=== PATIENT | male | born 1995 | race Two or more races ===

== ENCOUNTER 2022-07-04 12:16 | Inpatient (IN) | payer MEDICAID, OTHER ==
[2022-07-04] VITALS (8 sets, daily range): BP systolic 96–174; BP diastolic 51–95
[~2022-07-04] VITALS: Ht 172.7 cm; Wt 77.7 kg
[2022-07-04] MEDS ORDERED: cefTRIAXone SOD 1,000 MG VL IV ONE (12:30)
[2022-07-04] MEDS ORDERED: PANTOPRAZOLE 40mg/50ML NS AE 50 ML IV ONE ×2 (12:30→17:30)
[2022-07-04] MEDS ORDERED: PANTOPRAZOLE 80 MG in SODIUM CHL 0.9% 100 ML IV ONE (12:30)
[2022-07-04] MEDS ORDERED: AZITHROMYCIN 500MG/ 250ML 250 ML IV ONE (12:30)
[2022-07-04] MEDS ORDERED: OCTREOTIDE ACETATE 100 MCG in SODIUM CHL 0.9% 50 ML IV ONE (12:30)
[2022-07-04] MEDS ORDERED: ONDANSETRON HCL 4 MG/2 ML VIAL IV ONE ×2 (12:45→13:45)
[2022-07-04] MEDS ORDERED: cefTRIAXone 1GM/50ML D5W 50 ML IV ONE (12:45)
[2022-07-04 13:47] LABS: Albumin 3.1 g/dL (3.4-5.0); Calcium 7.7 mg/dL (8.5-10.1); Potassium 3.8 mmol/L (3.5-5.1)
[2022-07-04 13:51] LABS: Bilirubin, Total 16.4 mg/dL (0.2-1.0); Total Protein 7.4 g/dL (6.4-8.2)
[2022-07-04 13:56] LABS: Red Blood Cells 1.06 10^6/uL (4.5-5.90)
[2022-07-04 13:58] LABS: Hematocrit 13.1 % (41.0-53.0); Mean Corpuscular Hemoglobin 39.3 pg (28.0-32.0); Mean Corpuscular Volume 122.7 fL (80.0-100.0); Red Cell Distribution Width 19.6 % (11.8-14.3); White Blood Cell 29.5 10^3/uL (4.4-10.8)
[2022-07-04 14:10] LABS: INR 1.48 (0.9-1.15)
[2022-07-04 14:30] LABS: Hemoglobin 4.2 g/dL (13.5-17.5)
[2022-07-04 14:34] LABS: Basophils % (manual) 0 (0.0-2.0); Blast Cells 0; Eosinophils % (manual) 0 (0-7); Metamyelocytes % 0; Promyelocytes % 0; Reactive Lymphocytes 0
[2022-07-04] MEDS ORDERED: VANCOMYCIN 1GM/250ML 250 ML IV ONE (14:45)
[2022-07-04] MEDS ORDERED: METOCLOPRAMIDE HCL 5MG/ml INJ 2ml VIAL IV ONE (15:00)
[2022-07-04] MEDS: OCTREOTIDE ACETATE 500 MCG in SODIUM CHL 0.9% 99 ML IV SCH ×2 (15:05→22:45)
[2022-07-04 15:11] LABS: Band Neutrophils % (manual) 26; Lymphocytes % (manual) 4 (10.0-50.0); Monocytes % (manual) 6 (0-12); Myelocytes % 5
[2022-07-04] MEDS ORDERED: PHYTONADIONE (VIT K)10 MG/ML 1ML VIAL IV ONE (15:30)
[2022-07-04] MEDS ORDERED: PROPOFOL 100 ML IV ONE (17:54)
[2022-07-04] MEDS ORDERED: ETOMIDATE (2MG/ML) 20ML VIAL IV ONE ×2 (17:55→18:00)
[2022-07-04] MEDS ORDERED: SUCCINYLCHOLINE CHLORIDE 20 MG/ML 10ML VIAL IV ONE ×2 (17:55→18:00)
[2022-07-04] MEDS ORDERED: MORPHINE SULFATE INJ 2 MG/ml SYRG IV PRN (18:00)
[2022-07-04] MEDS ORDERED: SODIUM CHLORIDE 0.9% 1,000 ML IV SCH (18:00)
[2022-07-04] MEDS ORDERED: HYDROcodone-ACET 5/325MG TAB PO PRN (18:00)
[2022-07-04] MEDS ORDERED: ACETAMINOPHEN 325 MG TAB PO PRN (18:00)
[2022-07-04] MEDS ORDERED: ONDANSETRON HCL 4 MG/2 ML VIAL IV PRN (18:00)
[2022-07-04] MEDS ORDERED: NITROGLYCERIN 0.4 MG SL TAB SL PRN (18:00)
[2022-07-04] MEDS ORDERED: HYDROmorphone HCL 2 MG/ML VL/or syr IV PRN (18:00)
[2022-07-04] MEDS: PROPOFOL 100 ML IV SCH (18:10)
[2022-07-04] MEDS ORDERED: fentaNYL Drip 2500mCg/250mlNS 250 ML IV ONE (18:26)
[2022-07-04] MEDS: fentaNYL Drip 2500mCg/250mlNS 250 ML IV SCH (18:26)
[2022-07-04] MEDS ORDERED: ROCURONIUM 10MG/ML 10ML VIAL IV ONE ×3 (18:45→22:45)
[2022-07-04] MEDS: MIDAZOLAM DRIP 50 mg/50mL 50 ML IV SCH (18:50)
[2022-07-04 18:52] LABS: Mean Corpuscular Volume 102.9 fL (80.0-100.0); White Blood Cell 26.6 10^3/uL (4.4-10.8)
[2022-07-04 18:54] LABS: Hematocrit 27.5 % (41.0-53.0); Mean Corpuscular Hemoglobin 33.7 pg (28.0-32.0); Mean Corpuscular Hgb Conc. 32.8 g/dL (32.0-36.0); Red Blood Cells 2.67 10^6/uL (4.5-5.90)
[2022-07-04] MEDS ORDERED: ACETAMINOPHEN 650 MG RECT SUPP PR ONE ×2 (18:55→19:00)
[2022-07-04 19:06] LABS: INR 1.51 (0.9-1.15)
[2022-07-04 19:07] LABS: Urine Bacteria NONE SEEN /hpf (None Seen); Urine Blood 1+ /uL (Negative); Urine Hyaline Cast MOD /lpf (0 - 2); Urine Mucus FEW (None Seen); Urine Specific Gravity 1.026 (1.001-1.035); Urine WBC 4 /hpf (0 - 3)
[2022-07-04 19:11] LABS: Albumin 2.8 g/dL (3.4-5.0); Calcium 7.2 mg/dL (8.5-10.1); Potassium 4.7 mmol/L (3.5-5.1)
[2022-07-04 19:12] LABS: Red Cell Distribution Width 23.1 % (11.8-14.3)
[2022-07-04 19:14] LABS: BUN/Creatinine Ratio 31.4; Basophils % (manual) 0 (0.0-2.0); Bilirubin, Total 15.6 mg/dL (0.2-1.0); Blast Cells 0; Eosinophils % (manual) 0 (0-7); Metamyelocytes % 0; Myelocytes % 0; Promyelocytes % 0; Reactive Lymphocytes 0; Total Protein 7.1 g/dL (6.4-8.2)
[2022-07-04 19:24] LABS: Amphetamine Screen, Urine NEGATIVE (NEGATIVE); Barbiturate Scree,Urine NEGATIVE (NEGATIVE); Benzodiazephine Screen, Urine POSITIVE (NEGATIVE); Cannabinoid Screen, Urine NEGATIVE (NEGATIVE); Cocaine Screen, Urine NEGATIVE (NEGATIVE); Opiate Scree,Urine NEGATIVE (NEGATIVE); Phencyclidine Screen, Urine NEGATIVE (NEGATIVE)
[2022-07-04 19:58] LABS: Band Neutrophils % (manual) 19; Lymphocytes % (manual) 5 (10.0-50.0); Monocytes % (manual) 3 (0-12)
[2022-07-04] MEDS: AZITHROMYCIN 500MG/ 250ML 250 ML IV SCH (21:50)
[2022-07-04] MEDS: PIPERACILLIN-TAZO 4.5GM 100 ML IV SCH (21:51)
[2022-07-04] MEDS ORDERED: methylPREDNISolone SOD SUCC 40 MG/ML VL IV ONE (22:30)
[2022-07-04] MEDS ORDERED: OCTREOTIDE ACETATE 500 MCG/ML VL ONE (22:43)
[2022-07-05] VITALS (26 sets, daily range): BP systolic 84–99; BP diastolic 42–55
[2022-07-05 04:55] LABS: Red Blood Cells 2.03 10^6/uL (4.5-5.90)
[2022-07-05 05:02] LABS: Hematocrit 20.7 % (41.0-53.0); INR 1.52 (0.9-1.15); Mean Corpuscular Hemoglobin 34.2 pg (28.0-32.0); Mean Corpuscular Hgb Conc. 33.5 g/dL (32.0-36.0); Mean Corpuscular Volume 102.1 fL (80.0-100.0); White Blood Cell 17.4 10^3/uL (4.4-10.8)
[2022-07-05 05:04] LABS: Albumin 2.3 g/dL (3.4-5.0); Calcium 6.9 mg/dL (8.5-10.1); Potassium 4.8 mmol/L (3.5-5.1)
[2022-07-05 05:07] LABS: BUN/Creatinine Ratio 27.9; Bilirubin, Direct 6.6 mg/dL (0-0.2); Bilirubin, Total 13.9 mg/dL (0.2-1.0); Total Protein 5.7 g/dL (6.4-8.2)
[2022-07-05 05:19] LABS: Red Cell Distribution Width 23.6 % (11.8-14.3)
[2022-07-05 05:20] LABS: Hemoglobin 6.9 g/dL (13.5-17.5)
[2022-07-05 05:25] LABS: Basophils % (manual) 0 (0.0-2.0); Blast Cells 0; Eosinophils % (manual) 0 (0-7); Metamyelocytes % 0; Promyelocytes % 0; Reactive Lymphocytes 0
[2022-07-05] MEDS: PIPERACILLIN-TAZO 4.5GM 100 ML IV SCH ×3 (05:42→21:25)
[2022-07-05 07:01] LABS: Monocytes % (manual) 4 (0-12); Myelocytes % 6
[2022-07-05 07:02] LABS: Band Neutrophils % (manual) 31; Lymphocytes % (manual) 6 (10.0-50.0)
[2022-07-05] MEDS: PHENYLEPHRINE IV 250 ML IV SCH ×3 (07:44→23:58)
[2022-07-05] MEDS: MIDAZOLAM DRIP 50 mg/50mL 50 ML IV SCH ×3 (07:45→21:08)
[2022-07-05] MEDS: OCTREOTIDE ACETATE 500 MCG in SODIUM CHL 0.9% 99 ML IV SCH ×2 (10:00→19:37)
[2022-07-05] MEDS: FOLIC ACID 1 MG, MULTIPLE VITAMIN 10 ML, MAGNESIUM SULF SDV 50% 8 MEQ, THIAMINE INJ 100... INJ SCH ×5 (13:00)
[2022-07-05] MEDS: PROPOFOL 100 ML IV SCH (13:22)
[2022-07-05] MEDS: fentaNYL Drip 2500mCg/250mlNS 250 ML IV SCH (17:50)
[2022-07-05] MEDS: AZITHROMYCIN 500MG/ 250ML 250 ML IV SCH (21:25)
[2022-07-05] MEDS: PANTOPRAZOLE 40 MG/10 ML VIAL INJ IV SCH (22:23)
[2022-07-06] VITALS (99 sets, daily range): BP systolic 88–113; BP diastolic 42–62
[2022-07-06] MEDS: MIDAZOLAM DRIP 50 mg/50mL 50 ML IV SCH ×7 (00:15→22:39)
[2022-07-06] MEDS: OCTREOTIDE ACETATE 500 MCG in SODIUM CHL 0.9% 99 ML IV SCH ×2 (05:00→14:30)
[2022-07-06 05:10] LABS: Basophils % (manual) 0 (0.0-2.0); Blast Cells 0; Eosinophils % (manual) 0 (0-7); Hematocrit 28.3 % (41.0-53.0); Mean Corpuscular Hemoglobin 32.6 pg (28.0-32.0); Mean Corpuscular Hgb Conc. 31.9 g/dL (32.0-36.0); Mean Corpuscular Volume 102.2 fL (80.0-100.0); Myelocytes % 0; Promyelocytes % 0; Reactive Lymphocytes 0; Red Blood Cells 2.77 10^6/uL (4.5-5.90); Red Cell Distribution Width 23.9 % (11.8-14.3); White Blood Cell 20.5 10^3/uL (4.4-10.8)
[2022-07-06 05:52] LABS: INR 1.37 (0.9-1.15); Partial Thromboplastin Time 24.9 sec (24.6-33.4)
[2022-07-06] MEDS: PIPERACILLIN-TAZO 4.5GM 100 ML IV SCH ×2 (06:00→13:59)
[2022-07-06 07:14] LABS: Albumin 2.6 g/dL (3.4-5.0); Calcium 7.2 mg/dL (8.5-10.1)
[2022-07-06 07:18] LABS: BUN/Creatinine Ratio 31.2; Total Protein 6.1 g/dL (6.4-8.2)
[2022-07-06 07:49] LABS: Band Neutrophils % (manual) 62; Lymphocytes % (manual) 4 (10.0-50.0); Metamyelocytes % 1; Monocytes % (manual) 2 (0-12)
[2022-07-06] MEDS: PHENYLEPHRINE IV 250 ML IV SCH ×3 (08:30→21:33)
[2022-07-06] MEDS: PROPOFOL 100 ML IV SCH ×2 (10:01→18:08)
[2022-07-06] MEDS: PANTOPRAZOLE 40 MG/10 ML VIAL INJ IV SCH ×2 (10:01→22:39)
[2022-07-06] MEDS ORDERED: FUROSEMIDE 40 MG/4 ML VIAL IV ONE (11:30)
[2022-07-06] MEDS: methylPREDNISolone SOD SUCC 40 MG/ML VL IV SCH ×3 (11:41→22:39)
[2022-07-06] MEDS: FOLIC ACID 1 MG, MULTIPLE VITAMIN 10 ML, MAGNESIUM SULF SDV 50% 8 MEQ, THIAMINE INJ 100... INJ SCH ×5 (11:42)
[2022-07-06] MEDS: IPRATROPIUM BROM 0.5 MG/2.5ML INH SOL NEB SCH ×4 (11:45→23:35)
[2022-07-06] MEDS: ALBUTEROL SULF 2.5 MG/0.5ML(0.5%) NEB SOLN NEB SCH ×4 (11:45→23:35)
[2022-07-06] MEDS ORDERED: ALBUTEROL MEDNEB 2.5 mg/3ml NEB ONE ×4 (11:47→22:22)
[2022-07-06] MEDS ORDERED: DOXYCYCLINE 100MG/250ML 250 ML IV SCH (14:45)
[2022-07-06] MEDS ORDERED: DOXYCYCLINE 100MG/250ML 250 ML IV ONE (15:00)
[2022-07-06 15:20] LABS: Creatinine, Urine 124 mg/dL (30.0-125.0); Protein, Urine 31.5 mg/dL (0.0-11.9); Sodium Urine < 5 mmol/L (40-220)
[2022-07-06 15:22] LABS: Urine Bacteria NONE SEEN /hpf (None Seen); Urine Blood 3+ /uL (Negative); Urine WBC 6 /hpf (0 - 3)
[2022-07-06] MEDS: fentaNYL Drip 2500mCg/250mlNS 250 ML IV SCH (18:12)
[2022-07-06] MEDS ORDERED: CLINIMIX PER PHARMACY IV NR (20:00)
[2022-07-06] MEDS ORDERED: DEXTROSE (50%) 50ML SYRG IV SCH (20:00)
[2022-07-06] MEDS: AZITHROMYCIN 500MG/ 250ML 250 ML IV SCH (21:07)
[2022-07-06] MEDS: MEROPENEM 1GM IVPB 100 ML IV SCH (22:40)
[2022-07-06] MEDS: InsuLIN REG 1unit/0.01ml Soln (100units/ml) SC SCH (23:49)
[2022-07-06] MEDS: ACCU-CHEK COMFORT CURVE STRIP VI SCH (23:49)
[2022-07-07] VITALS (107 sets, daily range): BP systolic 88–115; BP diastolic 40–66
[2022-07-07] MEDS ORDERED: ALBUTEROL MEDNEB 2.5 mg/3ml NEB ONE ×4 (02:05→13:52)
[2022-07-07] MEDS: MIDAZOLAM DRIP 50 mg/50mL 50 ML IV SCH ×5 (02:19→17:59)
[2022-07-07] MEDS: PHENYLEPHRINE IV 250 ML IV SCH ×2 (03:00→17:50)
[2022-07-07] MEDS: PROPOFOL 100 ML IV SCH (03:02)
[2022-07-07] MEDS: IPRATROPIUM BROM 0.5 MG/2.5ML INH SOL NEB SCH ×5 (03:07→22:26)
[2022-07-07] MEDS: ALBUTEROL SULF 2.5 MG/0.5ML(0.5%) NEB SOLN NEB SCH ×5 (03:07→22:26)
[2022-07-07] MEDS: OCTREOTIDE ACETATE 500 MCG in SODIUM CHL 0.9% 99 ML IV SCH ×3 (03:11→20:30)
[2022-07-07] MEDS: DOXYCYCLINE 100MG/250ML 250 ML IV SCH ×2 (03:12→15:00)
[2022-07-07 05:18] LABS: Hematocrit 26.7 % (41.0-53.0); Hemoglobin 8.9 g/dL (13.5-17.5); Mean Corpuscular Hemoglobin 33.1 pg (28.0-32.0); Mean Corpuscular Hgb Conc. 33.4 g/dL (32.0-36.0); White Blood Cell 23.1 10^3/uL (4.4-10.8)
[2022-07-07] MEDS: methylPREDNISolone SOD SUCC 40 MG/ML VL IV SCH ×3 (05:37→21:19)
[2022-07-07] MEDS: MEROPENEM 1GM IVPB 100 ML IV SCH ×3 (05:38→22:14)
[2022-07-07 05:45] LABS: Albumin 2.6 g/dL (3.4-5.0); Calcium 7.2 mg/dL (8.5-10.1); Magnesium 3.1 mg/dL (1.6-2.6); Potassium 4.6 mmol/L (3.5-5.1); Red Cell Distribution Width 22.5 % (11.8-14.3)
[2022-07-07 05:47] LABS: Basophils % (manual) 0 (0.0-2.0); Blast Cells 0; Eosinophils % (manual) 0 (0-7); Metamyelocytes % 0; Myelocytes % 0; Promyelocytes % 0; Reactive Lymphocytes 0
[2022-07-07 05:50] LABS: BUN/Creatinine Ratio 40.4; Bilirubin, Total 13.2 mg/dL (0.2-1.0); Phosphorus 5.5 mg/dL (2.5-4.90); Total Protein 6.2 g/dL (6.4-8.2)
[2022-07-07] MEDS: ACCU-CHEK COMFORT CURVE STRIP VI SCH ×3 (05:55→18:01)
[2022-07-07] MEDS: InsuLIN REG 1unit/0.01ml Soln (100units/ml) SC SCH ×3 (06:00→18:07)
[2022-07-07] MEDS: fentaNYL Drip 2500mCg/250mlNS 250 ML IV SCH ×2 (06:40→18:00)
[2022-07-07 07:57] LABS: Band Neutrophils % (manual) 20; Lymphocytes % (manual) 2 (10.0-50.0); Monocytes % (manual) 3 (0-12)
[2022-07-07 08:49] LABS: Hepatitis B Surface Antibody Negative (Negative)
[2022-07-07 09:27] LABS: Hepatitis A Total Antibody Positive (Negative)
[2022-07-07] MEDS: PANTOPRAZOLE 40 MG/10 ML VIAL INJ IV SCH ×2 (10:11→21:18)
[2022-07-07 10:33] LABS: Hepatitis C Antibody Negative (Negative)
[2022-07-07] MEDS ORDERED: BUMETANIDE 2.5mg/10ml (0.25 mg/ml) INJ IV ONE (11:30)
[2022-07-07] MEDS: FOLIC ACID 1 MG, MULTIPLE VITAMIN 10 ML, MAGNESIUM SULF SDV 50% 8 MEQ, THIAMINE INJ 100... INJ SCH ×5 (12:02)
[2022-07-07] MEDS ORDERED: AMINO ACID INFUSION IN D10W 1,000 ML IV NR (20:00)
[2022-07-07] MEDS ORDERED: CLINIMIX PER PHARMACY IV NR (20:00)
[2022-07-07] MEDS: AZITHROMYCIN 500MG/ 250ML 250 ML IV SCH (21:05)
[2022-07-08] VITALS (99 sets, daily range): BP systolic 100–125; BP diastolic 55–72
[2022-07-08] MEDS: PHENYLEPHRINE IV 250 ML IV SCH ×3 (02:10→17:42)
[2022-07-08] MEDS: ALBUTEROL SULF 2.5 MG/0.5ML(0.5%) NEB SOLN NEB SCH ×6 (02:22→22:24)
[2022-07-08] MEDS: IPRATROPIUM BROM 0.5 MG/2.5ML INH SOL NEB SCH ×6 (02:22→22:24)
[2022-07-08] MEDS: DOXYCYCLINE 100MG/250ML 250 ML IV SCH ×2 (03:00→12:00)
[2022-07-08 03:35] LABS: Albumin 2.5 g/dL (3.4-5.0); Calcium 7.6 mg/dL (8.5-10.1); Magnesium 3.4 mg/dL (1.6-2.6); Potassium 4.5 mmol/L (3.5-5.1)
[2022-07-08 03:38] LABS: BUN/Creatinine Ratio 54.2; Bilirubin, Total 12.2 mg/dL (0.2-1.0); Phosphorus 3.2 mg/dL (2.5-4.90); Total Protein 6.5 g/dL (6.4-8.2)
[2022-07-08 03:53] LABS: Hematocrit 25.1 % (41.0-53.0); Hemoglobin 8.5 g/dL (13.5-17.5); Mean Corpuscular Hemoglobin 33.5 pg (28.0-32.0); Mean Corpuscular Hgb Conc. 33.7 g/dL (32.0-36.0); Mean Corpuscular Volume 99.4 fL (80.0-100.0); Red Blood Cells 2.53 10^6/uL (4.5-5.90); White Blood Cell 19.6 10^3/uL (4.4-10.8)
[2022-07-08 03:54] LABS: Red Cell Distribution Width 22.3 % (11.8-14.3)
[2022-07-08 03:55] LABS: Basophils % (manual) 0 (0.0-2.0); Blast Cells 0; Eosinophils % (manual) 0 (0-7); Metamyelocytes % 0; Promyelocytes % 0; Reactive Lymphocytes 0
[2022-07-08] MEDS: MEROPENEM 1GM IVPB 100 ML IV SCH ×3 (05:10→23:00)
[2022-07-08] MEDS: methylPREDNISolone SOD SUCC 40 MG/ML VL IV SCH ×3 (05:12→21:41)
[2022-07-08] MEDS: OCTREOTIDE ACETATE 500 MCG in SODIUM CHL 0.9% 99 ML IV SCH ×2 (05:16→13:35)
[2022-07-08] MEDS: ACCU-CHEK COMFORT CURVE STRIP VI SCH ×4 (05:53→17:56)
[2022-07-08] MEDS: InsuLIN REG 1unit/0.01ml Soln (100units/ml) SC SCH ×4 (05:54→17:58)
[2022-07-08] MEDS ORDERED: ALBUTEROL MEDNEB 2.5 mg/3ml NEB ONE ×5 (06:04→21:51)
[2022-07-08 06:22] LABS: Band Neutrophils % (manual) 12; Lymphocytes % (manual) 8 (10.0-50.0); Monocytes % (manual) 3 (0-12); Myelocytes % 1
[2022-07-08] MEDS: MIDAZOLAM DRIP 50 mg/50mL 50 ML IV SCH ×2 (08:00→13:36)
[2022-07-08] MEDS: PANTOPRAZOLE 40 MG/10 ML VIAL INJ IV SCH ×2 (10:03→21:41)
[2022-07-08] MEDS: PROPOFOL 100 ML IV SCH (12:00)
[2022-07-08] MEDS: fentaNYL Drip 2500mCg/250mlNS 250 ML IV SCH (15:05)
[2022-07-08] MEDS: AMINO ACID INFUSION IN D10W 1,000 ML IV NR (21:00)
[2022-07-08] MEDS: AZITHROMYCIN 500MG/ 250ML 250 ML IV SCH (21:00)
[2022-07-09] VITALS (100 sets, daily range): BP systolic 96–143; BP diastolic 45–79
[2022-07-09] MEDS: DOXYCYCLINE 100MG/250ML 250 ML IV SCH ×2 (01:00→13:42)
[2022-07-09] MEDS: ALBUTEROL SULF 2.5 MG/0.5ML(0.5%) NEB SOLN NEB SCH ×6 (02:19→22:50)
[2022-07-09] MEDS: IPRATROPIUM BROM 0.5 MG/2.5ML INH SOL NEB SCH ×6 (02:19→22:50)
[2022-07-09] MEDS: OCTREOTIDE ACETATE 500 MCG in SODIUM CHL 0.9% 99 ML IV SCH ×2 (02:30→13:42)
[2022-07-09] MEDS: PHENYLEPHRINE IV 250 ML IV SCH ×3 (03:10→19:50)
[2022-07-09] MEDS: MEROPENEM 1GM IVPB 100 ML IV SCH ×3 (05:15→22:00)
[2022-07-09] MEDS: methylPREDNISolone SOD SUCC 40 MG/ML VL IV SCH ×3 (05:16→21:01)
[2022-07-09 05:29] LABS: Red Blood Cells 2.76 10^6/uL (4.5-5.90)
[2022-07-09 05:31] LABS: Basophils # (auto) 0.1 10 ^3/uL (0-0.2); Basophils % (auto) 0.5 % (0.0-2.0); Eosinophils # (auto) 0.1 10 ^3/uL (0-0.8); Eosinophils % (auto) 0.6 % (0.0-7.0); Hemoglobin 9.1 g/dL (13.5-17.5); Lymphocytes # (auto) 2.3 10 ^3/uL (0.4-5.4); Mean Corpuscular Hemoglobin 33.1 pg (28.0-32.0); Mean Corpuscular Hgb Conc. 33.9 g/dL (32.0-36.0); Mean Corpuscular Volume 97.7 fL (80.0-100.0); Monocytes # (auto) 1.5 10 ^3/uL (0-1.3); Neutrophils # (auto) 14.8 10 ^3/uL (1.6-8.6); Neutrophils % (auto) 78.9 % (37.0-80.0); Nucleated Red Blood Cells % 0.1 %; White Blood Cell 18.8 10^3/uL (4.4-10.8)
[2022-07-09 05:32] LABS: Red Cell Distribution Width 22.9 % (11.8-14.3)
[2022-07-09 05:40] LABS: Albumin 2.3 g/dL (3.4-5.0); Calcium 8.3 mg/dL (8.5-10.1); Potassium 5.3 mmol/L (3.5-5.1)
[2022-07-09 05:42] LABS: BUN/Creatinine Ratio 55.6
[2022-07-09 05:45] LABS: Bilirubin, Total 12.9 mg/dL (0.2-1.0); Total Protein 6.3 g/dL (6.4-8.2)
[2022-07-09] MEDS: InsuLIN REG 1unit/0.01ml Soln (100units/ml) SC SCH ×4 (06:00→17:40)
[2022-07-09] MEDS: ACCU-CHEK COMFORT CURVE STRIP VI SCH ×4 (06:00→17:38)
[2022-07-09] MEDS ORDERED: ALBUTEROL MEDNEB 2.5 mg/3ml NEB ONE ×5 (06:03→22:08)
[2022-07-09] MEDS ORDERED: CALCIUM CHL 100MG/ML 500 MG in D5W 5% 100 ML IV ONE (06:30)
[2022-07-09] MEDS ORDERED: SODIUM ZIRCONIUM CYCL 10 GM PAK PO ONE (06:30)
[2022-07-09] MEDS ORDERED: DEXTROSE (50%) 50ML SYRG IV ONE (06:30)
[2022-07-09] MEDS ORDERED: FUROSEMIDE 20 MG/2 ML VIAL IV ONE (06:30)
[2022-07-09] MEDS ORDERED: SODIUM BICARBONATE 8.4% INJ 50ML SYRINGE IV ONE (06:30)
[2022-07-09] MEDS ORDERED: InsuLIN REG 1unit/0.01ml Soln (100units/ml) IV ONE (06:30)
[2022-07-09] MEDS: PANTOPRAZOLE 40 MG/10 ML VIAL INJ IV SCH ×2 (10:40→21:01)
[2022-07-09] MEDS ORDERED: SODIUM PHOSPHATES 20 MEQ in SODIUM CHL 0.9% 100 ML IV ONE (13:00)
[2022-07-09] MEDS: PROPOFOL 100 ML IV SCH (17:26)
[2022-07-09] MEDS: MIDAZOLAM DRIP 50 mg/50mL 50 ML IV SCH ×2 (17:27→21:18)
[2022-07-09] MEDS: AZITHROMYCIN 500MG/ 250ML 250 ML IV SCH (20:58)
[2022-07-09] MEDS: AMINO ACID INFUSION IN D10W 1,000 ML IV NR (20:59)
[2022-07-10] VITALS (100 sets, daily range): BP systolic 95–122; BP diastolic 46–65
[2022-07-10] MEDS ORDERED: ALBUTEROL MEDNEB 2.5 mg/3ml NEB ONE ×4 (02:07→14:06)
[2022-07-10] MEDS: PHENYLEPHRINE IV 250 ML IV SCH ×3 (04:10→20:50)
[2022-07-10] MEDS: ALBUTEROL SULF 2.5 MG/0.5ML(0.5%) NEB SOLN NEB SCH ×4 (04:20→14:10)
[2022-07-10] MEDS: IPRATROPIUM BROM 0.5 MG/2.5ML INH SOL NEB SCH ×5 (04:21→18:17)
[2022-07-10 05:10] LABS: Hemoglobin 8.4 g/dL (13.5-17.5)
[2022-07-10 05:12] LABS: Hematocrit 24.4 % (41.0-53.0); Mean Corpuscular Hemoglobin 34.1 pg (28.0-32.0); Mean Corpuscular Hgb Conc. 34.3 g/dL (32.0-36.0); Mean Corpuscular Volume 99.2 fL (80.0-100.0); Red Blood Cells 2.46 10^6/uL (4.5-5.90); White Blood Cell 9.7 10^3/uL (4.4-10.8)
[2022-07-10 05:13] LABS: Red Cell Distribution Width 25.1 % (11.8-14.3)
[2022-07-10 05:14] LABS: Basophils % (manual) 0 (0.0-2.0); Blast Cells 0; Eosinophils % (manual) 0 (0-7); Metamyelocytes % 0; Myelocytes % 0; Promyelocytes % 0; Reactive Lymphocytes 0
[2022-07-10 05:27] LABS: INR 1.7 (0.9-1.15)
[2022-07-10 05:36] LABS: Calcium 8.3 mg/dL (8.5-10.1)
[2022-07-10 05:39] LABS: Albumin 2.1 g/dL (3.4-5.0); Magnesium 2.7 mg/dL (1.6-2.6)
[2022-07-10 05:41] LABS: Bilirubin, Total 12.4 mg/dL (0.2-1.0); Phosphorus 3.9 mg/dL (2.5-4.90); Total Protein 5.7 g/dL (6.4-8.2)
[2022-07-10] MEDS: InsuLIN REG 1unit/0.01ml Soln (100units/ml) SC SCH ×3 (06:00→18:00)
[2022-07-10] MEDS: ACCU-CHEK COMFORT CURVE STRIP VI SCH ×3 (06:00→18:26)
[2022-07-10] MEDS: fentaNYL Drip 2500mCg/250mlNS 250 ML IV SCH (06:00)
[2022-07-10] MEDS: MEROPENEM 1GM IVPB 100 ML IV SCH ×3 (06:00→23:00)
[2022-07-10] MEDS: methylPREDNISolone SOD SUCC 40 MG/ML VL IV SCH ×3 (06:00→21:34)
[2022-07-10 06:44] LABS: Band Neutrophils % (manual) 6; Lymphocytes % (manual) 4 (10.0-50.0); Monocytes % (manual) 8 (0-12)
[2022-07-10] MEDS ORDERED: phytonadione 5 MG in SODIUM CHL 0.9% 50 ML IV ONE (08:15)
[2022-07-10] MEDS ORDERED: SODIUM ZIRCONIUM CYCL 10 GM PAK GT ONE (08:15)
[2022-07-10 09:29] LABS: Hematocrit 25.5 % (41.0-53.0); Hemoglobin 8.6 g/dL (13.5-17.5)
[2022-07-10] MEDS: PANTOPRAZOLE 40 MG/10 ML VIAL INJ IV SCH ×2 (09:41→21:32)
[2022-07-10] MEDS: OCTREOTIDE ACETATE 500 MCG in SODIUM CHL 0.9% 99 ML IV SCH ×4 (11:14→22:14)
[2022-07-10] MEDS: DOXYCYCLINE 100MG/250ML 250 ML IV SCH (12:00)
[2022-07-10] MEDS ORDERED: DEXTROSE (50%) 50ML SYRG IV ONE ×2 (12:45→16:45)
[2022-07-10] MEDS ORDERED: SODIUM BICARBONATE 8.4 % INJ 50ML VIAL IV ONE (12:45)
[2022-07-10] MEDS ORDERED: InsuLIN REG 1unit/0.01ml Soln (100units/ml) IV ONE ×2 (12:45→16:45)
[2022-07-10] MEDS ORDERED: CALCIUM GLUC 1,000mg/50ml-NS 50 ML IV ONE (12:45)
[2022-07-10] MEDS ORDERED: SODIUM CHLORIDE 0.9% 1,000 ML IV ONE (13:00)
[2022-07-10] MEDS: SODIUM ZIRCONIUM CYCL 10 GM PAK GT SCH ×2 (14:00→21:30)
[2022-07-10] MEDS ORDERED: phytonadione 10 MG in SODIUM CHL 0.9% 50 ML IV ONE (14:00)
[2022-07-10 14:37] LABS: Hematocrit 24.3 % (41.0-53.0); Hemoglobin 8.2 g/dL (13.5-17.5)
[2022-07-10 14:53] LABS: BUN/Creatinine Ratio 66.2; Calcium 8.3 mg/dL (8.5-10.1)
[2022-07-10 15:01] LABS: Potassium 5.8 mmol/L (3.5-5.1)
[2022-07-10] MEDS ORDERED: FUROSEMIDE 40 MG/4 ML VIAL IV ONE (16:45)
[2022-07-10] MEDS ORDERED: SODIUM CHLORIDE 0.9% 500 ML IV ONE (16:45)
[2022-07-10] MEDS: PROPOFOL 100 ML IV SCH (18:00)
[2022-07-10] MEDS: ALBUTEROL MEDNEB 2.5 mg/3ml NEB NEB SCH (18:18)
[2022-07-10] MEDS ORDERED: AMINO ACID INFUSION IN D10W 1,000 ML IV NR (20:00)
[2022-07-10 20:22] LABS: Hematocrit 24.5 % (41.0-53.0); Hemoglobin 8.5 g/dL (13.5-17.5)
[2022-07-10] MEDS: AZITHROMYCIN 500MG/ 250ML 250 ML IV SCH (21:30)
[2022-07-11] VITALS (105 sets, daily range): BP systolic 94–129; BP diastolic 48–67
[2022-07-11] MEDS: ACCU-CHEK COMFORT CURVE STRIP VI SCH ×4 (00:13→17:42)
[2022-07-11] MEDS: DOXYCYCLINE 100MG/250ML 250 ML IV SCH (01:00)
[2022-07-11] MEDS: MIDAZOLAM DRIP 50 mg/50mL 50 ML IV SCH ×5 (04:20→18:08)
[2022-07-11] MEDS: IPRATROPIUM BROM 0.5 MG/2.5ML INH SOL NEB SCH ×6 (04:46→21:51)
[2022-07-11] MEDS: ALBUTEROL MEDNEB 2.5 mg/3ml NEB NEB SCH ×6 (04:46→21:51)
[2022-07-11] MEDS: PHENYLEPHRINE IV 250 ML IV SCH ×3 (05:10→21:50)
[2022-07-11 05:19] LABS: INR 1.74 (0.9-1.15)
[2022-07-11 05:21] LABS: BUN/Creatinine Ratio 58.9; Calcium 8.2 mg/dL (8.5-10.1); Magnesium 2.7 mg/dL (1.6-2.6); Potassium 5.3 mmol/L (3.5-5.1)
[2022-07-11 05:24] LABS: Bilirubin, Total 11.7 mg/dL (0.2-1.0); Phosphorus 4.2 mg/dL (2.5-4.90); Total Protein 5.6 g/dL (6.4-8.2)
[2022-07-11 05:41] LABS: Hematocrit 24.4 % (41.0-53.0); Hemoglobin 8.3 g/dL (13.5-17.5); Mean Corpuscular Hemoglobin 33.3 pg (28.0-32.0); Mean Corpuscular Hgb Conc. 33.8 g/dL (32.0-36.0); Mean Corpuscular Volume 98.3 fL (80.0-100.0); Red Blood Cells 2.49 10^6/uL (4.5-5.90); White Blood Cell 8.8 10^3/uL (4.4-10.8)
[2022-07-11 05:44] LABS: Basophils % (manual) 0 (0.0-2.0); Blast Cells 0; Eosinophils % (manual) 0 (0-7); Promyelocytes % 0; Reactive Lymphocytes 0; Red Cell Distribution Width 24.5 % (11.8-14.3)
[2022-07-11] MEDS: SODIUM ZIRCONIUM CYCL 10 GM PAK GT SCH ×3 (05:50→21:17)
[2022-07-11] MEDS: methylPREDNISolone SOD SUCC 40 MG/ML VL IV SCH ×2 (05:50→21:20)
[2022-07-11] MEDS: MEROPENEM 1GM IVPB 100 ML IV SCH ×3 (05:50→21:17)
[2022-07-11] MEDS: InsuLIN REG 1unit/0.01ml Soln (100units/ml) SC SCH ×4 (06:08→17:42)
[2022-07-11 08:19] LABS: Band Neutrophils % (manual) 12; Lymphocytes % (manual) 5 (10.0-50.0); Metamyelocytes % 1; Monocytes % (manual) 4 (0-12); Myelocytes % 1
[2022-07-11] MEDS ORDERED: FUROSEMIDE 100 MG/10ML VIAL IV ONE (10:00)
[2022-07-11] MEDS: PANTOPRAZOLE 40 MG/10 ML VIAL INJ IV SCH ×2 (10:32→21:18)
[2022-07-11] MEDS ORDERED: ACETAMINOPHEN 325 MG TAB PO PRN (11:30)
[2022-07-11] MEDS: OCTREOTIDE ACETATE 500 MCG in SODIUM CHL 0.9% 99 ML IV SCH ×2 (11:43→14:30)
[2022-07-11] MEDS ORDERED: TPN PER PHARMACY 0 ML IV SCH (11:45)
[2022-07-11] MEDS ORDERED: LIDOCAINE 1% (LOCAL ANESTH.) PF 5ml SDV ID ONE (14:15)
[2022-07-11] MEDS: PROPOFOL 100 ML IV SCH (15:35)
[2022-07-11] MEDS: fentaNYL Drip 2500mCg/250mlNS 250 ML IV SCH (17:43)
[2022-07-11] MEDS ORDERED: AMINO ACID INFUSION IN D10W 1,000 ML IV NR (20:00)
[2022-07-11] MEDS: SODIUM CHLOR 0.9% PF (SALINE LOCK) 10ML VIAL/SYR IV SCH (21:20)
[2022-07-12] VITALS (78 sets, daily range): BP systolic 105–134; BP diastolic 41–74
[2022-07-12] MEDS: OCTREOTIDE ACETATE 500 MCG in SODIUM CHL 0.9% 99 ML IV SCH ×2 (00:30→08:03)
[2022-07-12] MEDS: ALBUTEROL MEDNEB 2.5 mg/3ml NEB NEB SCH ×6 (02:03→22:09)
[2022-07-12] MEDS: IPRATROPIUM BROM 0.5 MG/2.5ML INH SOL NEB SCH ×6 (02:03→22:09)
[2022-07-12 04:57] LABS: Hemoglobin 8.8 g/dL (13.5-17.5); Mean Corpuscular Hemoglobin 33.3 pg (28.0-32.0); Mean Corpuscular Hgb Conc. 31.5 g/dL (32.0-36.0); Mean Corpuscular Volume 105.8 fL (80.0-100.0); Red Blood Cells 2.65 10^6/uL (4.5-5.90); White Blood Cell 10.7 10^3/uL (4.4-10.8)
[2022-07-12 04:58] LABS: Red Cell Distribution Width 24.5 % (11.8-14.3)
[2022-07-12 05:00] LABS: Basophils % (manual) 0 (0.0-2.0); Blast Cells 0; Eosinophils % (manual) 0 (0-7); Metamyelocytes % 0; Myelocytes % 0; Promyelocytes % 0; Reactive Lymphocytes 0
[2022-07-12 05:10] LABS: Calcium 8.1 mg/dL (8.5-10.1); Magnesium 2.7 mg/dL (1.6-2.6); Potassium 5.1 mmol/L (3.5-5.1)
[2022-07-12 05:13] LABS: Bilirubin, Total 12.6 mg/dL (0.2-1.0); Phosphorus 4.1 mg/dL (2.5-4.90); Total Protein 5.5 g/dL (6.4-8.2)
[2022-07-12] MEDS: SODIUM ZIRCONIUM CYCL 10 GM PAK GT SCH (06:00)
[2022-07-12] MEDS: MEROPENEM 1GM IVPB 100 ML IV SCH ×3 (06:00→22:00)
[2022-07-12] MEDS: ACCU-CHEK COMFORT CURVE STRIP VI SCH ×4 (06:00→17:29)
[2022-07-12] MEDS: PHENYLEPHRINE IV 250 ML IV SCH ×3 (06:10→22:50)
[2022-07-12] MEDS: InsuLIN REG 1unit/0.01ml Soln (100units/ml) SC SCH ×3 (06:30→17:30)
[2022-07-12 06:35] LABS: Band Neutrophils % (manual) 10; Lymphocytes % (manual) 10 (10.0-50.0); Monocytes % (manual) 1 (0-12)
[2022-07-12] MEDS: MIDAZOLAM DRIP 50 mg/50mL 50 ML IV SCH ×3 (08:02→16:53)
[2022-07-12] MEDS: PROPOFOL 100 ML IV SCH ×2 (10:12→16:52)
[2022-07-12] MEDS: PANTOPRAZOLE 40 MG/10 ML VIAL INJ IV SCH ×2 (10:13→22:00)
[2022-07-12] MEDS: SODIUM CHLOR 0.9% PF (SALINE LOCK) 10ML VIAL/SYR IV SCH ×2 (10:13→22:00)
[2022-07-12] MEDS: methylPREDNISolone SOD SUCC 40 MG/ML VL IV SCH ×2 (10:13→22:00)
[2022-07-12] MEDS ORDERED: FUROSEMIDE 20 MG/2 ML VIAL IV ONE (11:30)
[2022-07-12] MEDS: fentaNYL Drip 2500mCg/250mlNS 250 ML IV SCH (18:40)
[2022-07-12] MEDS ORDERED: TPN PER PHARMACY IV NR ×6 (20:00)
[2022-07-13] VITALS (87 sets, daily range): BP systolic 118–176; BP diastolic 52–102
[2022-07-13] MEDS: fentaNYL Drip 2500mCg/250mlNS 250 ML IV SCH ×2 (02:00→21:48)
[2022-07-13 05:03] LABS: White Blood Cell 16.7 10^3/uL (4.4-10.8)
[2022-07-13 05:06] LABS: Hematocrit 23.9 % (41.0-53.0); Mean Corpuscular Hemoglobin 32.9 pg (28.0-32.0); Mean Corpuscular Hgb Conc. 33.5 g/dL (32.0-36.0); Mean Corpuscular Volume 98.1 fL (80.0-100.0); Red Blood Cells 2.44 10^6/uL (4.5-5.90)
[2022-07-13 05:17] LABS: Calcium 8.1 mg/dL (8.5-10.1); Magnesium 2.7 mg/dL (1.6-2.6); Potassium 4.9 mmol/L (3.5-5.1)
[2022-07-13 05:19] LABS: BUN/Creatinine Ratio 61.1
[2022-07-13 05:21] LABS: Bilirubin, Total 12.8 mg/dL (0.2-1.0); Phosphorus 2.9 mg/dL (2.5-4.90); Total Protein 5.1 g/dL (6.4-8.2)
[2022-07-13 05:36] LABS: Red Cell Distribution Width 23.9 % (11.8-14.3)
[2022-07-13 05:37] LABS: Basophils % (manual) 0 (0.0-2.0); Blast Cells 0; Myelocytes % 0; Promyelocytes % 0; Reactive Lymphocytes 0
[2022-07-13] MEDS: ACCU-CHEK COMFORT CURVE STRIP VI SCH ×4 (05:58→17:24)
[2022-07-13] MEDS: MEROPENEM 1GM IVPB 100 ML IV SCH ×3 (06:00→21:50)
[2022-07-13] MEDS: ALBUTEROL MEDNEB 2.5 mg/3ml NEB NEB SCH ×4 (06:21→22:00)
[2022-07-13] MEDS: IPRATROPIUM BROM 0.5 MG/2.5ML INH SOL NEB SCH ×4 (06:21→22:00)
[2022-07-13] MEDS: InsuLIN REG 1unit/0.01ml Soln (100units/ml) SC SCH ×4 (06:30→17:25)
[2022-07-13] MEDS: PHENYLEPHRINE IV 250 ML IV SCH ×3 (07:10→23:50)
[2022-07-13] MEDS: PANTOPRAZOLE 40 MG/10 ML VIAL INJ IV SCH ×2 (09:48→21:46)
[2022-07-13] MEDS: methylPREDNISolone SOD SUCC 40 MG/ML VL IV SCH ×2 (09:49→21:45)
[2022-07-13] MEDS: SODIUM CHLOR 0.9% PF (SALINE LOCK) 10ML VIAL/SYR IV SCH ×2 (09:50→21:46)
[2022-07-13 11:49] LABS: Band Neutrophils % (manual) 19; Eosinophils % (manual) 1 (0-7); Lymphocytes % (manual) 1 (10.0-50.0); Metamyelocytes % 1; Monocytes % (manual) 4 (0-12)
[2022-07-13] MEDS ORDERED: METOPROLOL TARTRATE 1MG/1ML-5ML VIAL IV ONE (13:45)
[2022-07-13] MEDS ORDERED: ACETAMINOPHEN 500 MG TAB PO PRN (14:00)
[2022-07-13] MEDS: PROPOFOL 100 ML IV SCH ×3 (15:50→21:48)
[2022-07-13] MEDS ORDERED: TPN PER PHARMACY IV NR ×7 (20:00)
[2022-07-13] MEDS: MIDAZOLAM DRIP 50 mg/50mL 50 ML IV SCH (21:49)
[2022-07-14] VITALS (102 sets, daily range): BP systolic 98–159; BP diastolic 45–100
[2022-07-14] MEDS: ACCU-CHEK COMFORT CURVE STRIP VI SCH ×4 (00:24→17:15)
[2022-07-14] MEDS: InsuLIN REG 1unit/0.01ml Soln (100units/ml) SC SCH ×4 (00:24→17:15)
[2022-07-14] MEDS: PROPOFOL 100 ML IV SCH ×4 (00:48→23:19)
[2022-07-14] MEDS: ALBUTEROL MEDNEB 2.5 mg/3ml NEB NEB SCH ×4 (02:15→22:34)
[2022-07-14] MEDS: IPRATROPIUM BROM 0.5 MG/2.5ML INH SOL NEB SCH ×4 (02:15→22:34)
[2022-07-14 05:02] LABS: Mean Corpuscular Hemoglobin 32.5 pg (28.0-32.0)
[2022-07-14 05:04] LABS: Hematocrit 24.4 % (41.0-53.0); Hemoglobin 8.1 g/dL (13.5-17.5); Mean Corpuscular Hgb Conc. 33.3 g/dL (32.0-36.0); Mean Corpuscular Volume 97.6 fL (80.0-100.0); White Blood Cell 22.4 10^3/uL (4.4-10.8)
[2022-07-14 05:07] LABS: INR 1.73 (0.9-1.15); Partial Thromboplastin Time 25.6 sec (24.6-33.4)
[2022-07-14 05:08] LABS: Potassium 4.6 mmol/L (3.5-5.1); Red Cell Distribution Width 23.1 % (11.8-14.3)
[2022-07-14 05:09] LABS: Basophils % (manual) 0 (0.0-2.0); Blast Cells 0; Eosinophils % (manual) 0 (0-7); Metamyelocytes % 0; Myelocytes % 0; Promyelocytes % 0; Reactive Lymphocytes 0
[2022-07-14 05:11] LABS: BUN/Creatinine Ratio 43.1; Magnesium 2.3 mg/dL (1.6-2.6)
[2022-07-14 05:14] LABS: Bilirubin, Total 13.6 mg/dL (0.2-1.0); Phosphorus 2.4 mg/dL (2.5-4.90); Total Protein 5.1 g/dL (6.4-8.2)
[2022-07-14] MEDS: MEROPENEM 1GM IVPB 100 ML IV SCH ×3 (05:37→21:41)
[2022-07-14 06:45] LABS: Band Neutrophils % (manual) 6; Lymphocytes % (manual) 1 (10.0-50.0); Monocytes % (manual) 3 (0-12)
[2022-07-14] MEDS ORDERED: VANCOMYCIN PER PHARMACY 0 MG IV SCH (08:00)
[2022-07-14] MEDS: PHENYLEPHRINE IV 250 ML IV SCH ×2 (08:10→16:30)
[2022-07-14] MEDS ORDERED: SODIUM PHOSPHATES 20 MEQ in SODIUM CHL 0.9% 100 ML IV ONE (08:30)
[2022-07-14] MEDS ORDERED: VANCOMYCIN 1GM/250ML 250 ML IV ONE (09:00)
[2022-07-14] MEDS: SODIUM CHLOR 0.9% PF (SALINE LOCK) 10ML VIAL/SYR IV SCH ×2 (10:28→21:41)
[2022-07-14] MEDS: PANTOPRAZOLE 40 MG/10 ML VIAL INJ IV SCH ×2 (10:28→21:39)
[2022-07-14] MEDS: methylPREDNISolone SOD SUCC 40 MG/ML VL IV SCH ×2 (10:28→21:36)
[2022-07-14] MEDS ORDERED: BUMETANIDE 2.5mg/10ml (0.25 mg/ml) INJ IV ONE (14:00)
[2022-07-14] MEDS: fentaNYL Drip 2500mCg/250mlNS 250 ML IV SCH (14:37)
[2022-07-14] MEDS: MIDAZOLAM DRIP 50 mg/50mL 50 ML IV SCH (18:00)
[2022-07-14] MEDS: VANCOMYCIN 1GM/250ML 250 ML IV SCH (18:38)
[2022-07-14] MEDS ORDERED: TPN PER PHARMACY IV NR ×8 (20:00)
[2022-07-15] VITALS (96 sets, daily range): BP systolic 101–159; BP diastolic 51–128
[2022-07-15] MEDS: ACCU-CHEK COMFORT CURVE STRIP VI SCH ×5 (00:15→23:01)
[2022-07-15] MEDS: PHENYLEPHRINE IV 250 ML IV SCH ×6 (00:50→23:20)
[2022-07-15] MEDS: ALBUTEROL MEDNEB 2.5 mg/3ml NEB NEB SCH ×6 (02:21→21:37)
[2022-07-15] MEDS: IPRATROPIUM BROM 0.5 MG/2.5ML INH SOL NEB SCH ×6 (02:21→21:37)
[2022-07-15] MEDS: PROPOFOL 100 ML IV SCH ×2 (03:03→23:19)
[2022-07-15] MEDS: VANCOMYCIN 1GM/250ML 250 ML IV SCH ×3 (03:05→17:09)
[2022-07-15] MEDS: fentaNYL Drip 2500mCg/250mlNS 250 ML IV SCH (05:14)
[2022-07-15 05:16] LABS: Calcium 7.5 mg/dL (8.5-10.1); Potassium 3.8 mmol/L (3.5-5.1)
[2022-07-15 05:18] LABS: Eosinophils # (auto) 0 10 ^3/uL (0-0.8); Eosinophils % (auto) 0.1 % (0.0-7.0); Monocytes # (auto) 1.2 10 ^3/uL (0-1.3)
[2022-07-15 05:21] LABS: Bilirubin, Total 12.9 mg/dL (0.2-1.0); Phosphorus 2.6 mg/dL (2.5-4.90); Total Protein 5.3 g/dL (6.4-8.2)
[2022-07-15 05:22] LABS: Basophils # (auto) 0.1 10 ^3/uL (0-0.2); Basophils % (auto) 0.5 % (0.0-2.0); Hematocrit 23.8 % (41.0-53.0); Lymphocytes # (auto) 0.3 10 ^3/uL (0.4-5.4); Lymphocytes % (auto) 1.3 % (10.0-50.0); Mean Corpuscular Hemoglobin 32.8 pg (28.0-32.0); Mean Corpuscular Hgb Conc. 33.7 g/dL (32.0-36.0); Mean Corpuscular Volume 97.3 fL (80.0-100.0); Monocytes % (auto) 5.3 % (0.0-12.0); Neutrophils # (auto) 20.6 10 ^3/uL (1.6-8.6); Neutrophils % (auto) 92.8 % (37.0-80.0); Nucleated Red Blood Cells % 0.1 %; Red Blood Cells 2.45 10^6/uL (4.5-5.90); White Blood Cell 22.2 10^3/uL (4.4-10.8)
[2022-07-15 05:28] LABS: BUN/Creatinine Ratio 44.9
[2022-07-15] MEDS: InsuLIN REG 1unit/0.01ml Soln (100units/ml) SC SCH ×5 (05:44→23:00)
[2022-07-15] MEDS: MEROPENEM 1GM IVPB 100 ML IV SCH ×3 (05:44→22:19)
[2022-07-15 06:31] LABS: Red Cell Distribution Width 23.2 % (11.8-14.3)
[2022-07-15] MEDS: SODIUM CHLOR 0.9% PF (SALINE LOCK) 10ML VIAL/SYR IV SCH ×2 (07:32→22:18)
[2022-07-15] MEDS: methylPREDNISolone SOD SUCC 40 MG/ML VL IV SCH ×2 (08:28→22:18)
[2022-07-15] MEDS: PANTOPRAZOLE 40 MG/10 ML VIAL INJ IV SCH ×2 (08:28→22:18)
[2022-07-15] MEDS ORDERED: ALBUMIN 25% 100 ML IV ONE (09:30)
[2022-07-15] MEDS ORDERED: BUMETANIDE 2.5mg/10ml (0.25 mg/ml) INJ IV ONE (09:30)
[2022-07-15] MEDS ORDERED: ALPRAZolam 0.5 MG TAB PO PRN (12:00)
[2022-07-15] MEDS: MIDAZOLAM DRIP 50 mg/50mL 50 ML IV SCH ×2 (12:10→23:17)
[2022-07-15] MEDS: LORazepam 2MG/ML-1ML VIAL IV PRN (12:34)
[2022-07-15] MEDS: ONDANSETRON HCL 4 MG/2 ML VIAL IV PRN (15:25)
[2022-07-15] MEDS ORDERED: TPN PER PHARMACY IV NR ×9 (20:00)
[2022-07-16] VITALS (101 sets, daily range): BP systolic 119–156; BP diastolic 52–84
[2022-07-16] MEDS: VANCOMYCIN 1GM/250ML 250 ML IV SCH ×3 (01:44→17:11)
[2022-07-16] MEDS: IPRATROPIUM BROM 0.5 MG/2.5ML INH SOL NEB SCH ×6 (01:45→22:19)
[2022-07-16] MEDS: ALBUTEROL MEDNEB 2.5 mg/3ml NEB NEB SCH ×6 (01:45→22:19)
[2022-07-16 05:00] LABS: Hemoglobin 9.6 g/dL (13.5-17.5)
[2022-07-16 05:05] LABS: Hematocrit 28.1 % (41.0-53.0); Mean Corpuscular Hgb Conc. 34.2 g/dL (32.0-36.0); Mean Corpuscular Volume 96.5 fL (80.0-100.0); Red Blood Cells 2.91 10^6/uL (4.5-5.90)
[2022-07-16 05:08] LABS: Red Cell Distribution Width 22.6 % (11.8-14.3); White Blood Cell 45.3 10^3/uL (4.4-10.8)
[2022-07-16 05:10] LABS: Basophils % (manual) 0 (0.0-2.0); Blast Cells 0; Eosinophils % (manual) 0 (0-7); Metamyelocytes % 0; Myelocytes % 0; Promyelocytes % 0; Reactive Lymphocytes 0
[2022-07-16 05:31] LABS: Albumin 2.4 g/dL (3.4-5.0); Calcium 7.9 mg/dL (8.5-10.1); Potassium 3.6 mmol/L (3.5-5.1)
[2022-07-16 05:35] LABS: BUN/Creatinine Ratio 40.6; Bilirubin, Total 22.2 mg/dL (0.2-1.0); Phosphorus 2.4 mg/dL (2.5-4.90); Total Protein 4.8 g/dL (6.4-8.2)
[2022-07-16] MEDS: ACCU-CHEK COMFORT CURVE STRIP VI SCH ×3 (06:00→17:11)
[2022-07-16 06:28] LABS: Band Neutrophils % (manual) 4; Lymphocytes % (manual) 1 (10.0-50.0); Monocytes % (manual) 4 (0-12)
[2022-07-16] MEDS: MEROPENEM 1GM IVPB 100 ML IV SCH ×3 (06:42→21:38)
[2022-07-16] MEDS: InsuLIN REG 1unit/0.01ml Soln (100units/ml) SC SCH ×3 (06:43→17:11)
[2022-07-16] MEDS ORDERED: FUROSEMIDE 20 MG/2 ML VIAL IV ONE ×2 (08:30→12:30)
[2022-07-16 08:35] LABS: Urine Bacteria FEW /hpf (None Seen); Urine Blood Negative /uL (Negative); Urine Mucus FEW (None Seen); Urine Specific Gravity 1.032 (1.001-1.035); Urine WBC 6 /hpf (0 - 3)
[2022-07-16] MEDS: PANTOPRAZOLE 40 MG/10 ML VIAL INJ IV SCH ×2 (08:42→21:38)
[2022-07-16] MEDS: methylPREDNISolone SOD SUCC 40 MG/ML VL IV SCH ×2 (08:42→21:38)
[2022-07-16] MEDS: SODIUM CHLOR 0.9% PF (SALINE LOCK) 10ML VIAL/SYR IV SCH ×2 (08:42→21:39)
[2022-07-16] MEDS: LORazepam 2MG/ML-1ML VIAL IV PRN ×2 (09:33→20:56)
[2022-07-16] MEDS ORDERED: POTASSIUM PHOSP 22MEQ(15MMOLE) in NS 100 ML IV ONE (10:15)
[2022-07-16] MEDS: ACETYLCYSTEINE 10 %(100MG/ML) SOL 4ML NEB SCH ×3 (10:39→22:19)
[2022-07-16] MEDS: MORPHINE SULFATE INJ 2 MG/ml SYRG IV PRN (10:53)
[2022-07-16] MEDS ORDERED: TPN PER PHARMACY IV NR ×10 (20:00)
[2022-07-17] VITALS (105 sets, daily range): BP systolic 115–145; BP diastolic 48–73
[2022-07-17] MEDS: ACCU-CHEK COMFORT CURVE STRIP VI SCH ×4 (00:23→17:10)
[2022-07-17] MEDS: InsuLIN REG 1unit/0.01ml Soln (100units/ml) SC SCH ×4 (00:24→17:10)
[2022-07-17] MEDS: VANCOMYCIN 1GM/250ML 250 ML IV SCH ×4 (01:13→21:08)
[2022-07-17] MEDS: ALBUTEROL MEDNEB 2.5 mg/3ml NEB NEB SCH ×6 (02:13→22:13)
[2022-07-17] MEDS: IPRATROPIUM BROM 0.5 MG/2.5ML INH SOL NEB SCH ×6 (02:13→22:13)
[2022-07-17] MEDS: PHENYLEPHRINE IV 250 ML IV SCH ×3 (02:50→14:31)
[2022-07-17] MEDS: MEROPENEM 1GM IVPB 100 ML IV SCH ×3 (05:40→21:45)
[2022-07-17] MEDS: ACETYLCYSTEINE 10 %(100MG/ML) SOL 4ML NEB SCH ×3 (07:35→22:13)
[2022-07-17 08:22] LABS: Hematocrit 20.1 % (41.0-53.0); Mean Corpuscular Hgb Conc. 34.1 g/dL (32.0-36.0); Mean Corpuscular Volume 96.7 fL (80.0-100.0); Red Blood Cells 2.08 10^6/uL (4.5-5.90); White Blood Cell 24.6 10^3/uL (4.4-10.8)
[2022-07-17] MEDS: PANTOPRAZOLE 40 MG/10 ML VIAL INJ IV SCH ×2 (08:25→21:42)
[2022-07-17] MEDS: SODIUM CHLOR 0.9% PF (SALINE LOCK) 10ML VIAL/SYR IV SCH ×2 (08:25→21:42)
[2022-07-17] MEDS: methylPREDNISolone SOD SUCC 40 MG/ML VL IV SCH ×2 (08:25→21:42)
[2022-07-17 08:29] LABS: Red Cell Distribution Width 22.3 % (11.8-14.3)
[2022-07-17 08:31] LABS: Hemoglobin 6.9 g/dL (13.5-17.5)
[2022-07-17 08:32] LABS: Basophils % (manual) 0 (0.0-2.0); Blast Cells 0; Eosinophils % (manual) 0 (0-7); Metamyelocytes % 0; Myelocytes % 0; Promyelocytes % 0; Reactive Lymphocytes 0
[2022-07-17 08:54] LABS: Albumin 2.1 g/dL (3.4-5.0); Calcium 7.6 mg/dL (8.5-10.1); Magnesium 2.3 mg/dL (1.6-2.6); Potassium 3.5 mmol/L (3.5-5.1)
[2022-07-17 08:57] LABS: BUN/Creatinine Ratio 64.4; Phosphorus 2.6 mg/dL (2.5-4.90); Total Protein 4.9 g/dL (6.4-8.2)
[2022-07-17 09:30] LABS: Band Neutrophils % (manual) 18; Lymphocytes % (manual) 1 (10.0-50.0); Monocytes % (manual) 5 (0-12)
[2022-07-17] MEDS ORDERED: POTASSIUM PHOSP 22MEQ(15MMOLE) in NS 100 ML IV ONE (10:00)
[2022-07-17] MEDS: MIDAZOLAM DRIP 50 mg/50mL 50 ML IV SCH (14:11)
[2022-07-17] MEDS: PROPOFOL 100 ML IV SCH (14:11)
[2022-07-17] MEDS ORDERED: FUROSEMIDE 20 MG/2 ML VIAL IV ONE (17:30)
[2022-07-17] MEDS ORDERED: TPN PER PHARMACY IV NR ×10 (20:00)
[2022-07-17] MEDS: LORazepam 2MG/ML-1ML VIAL IV PRN (23:53)
[2022-07-18] VITALS (67 sets, daily range): BP systolic 110–142; BP diastolic 62–81
[2022-07-18] MEDS: LORazepam 2MG/ML-1ML VIAL IV PRN (00:25)
[2022-07-18 00:29] LABS: Hematocrit 23.9 % (41.0-53.0); Hemoglobin 8.3 g/dL (13.5-17.5); Mean Corpuscular Hemoglobin 33.2 pg (28.0-32.0); Mean Corpuscular Hgb Conc. 34.7 g/dL (32.0-36.0); Mean Corpuscular Volume 95.5 fL (80.0-100.0); Red Blood Cells 2.51 10^6/uL (4.5-5.90)
[2022-07-18 00:32] LABS: Red Cell Distribution Width 21.3 % (11.8-14.3)
[2022-07-18 00:33] LABS: Basophils % (manual) 0 (0.0-2.0); Blast Cells 0; Eosinophils % (manual) 0 (0-7); Metamyelocytes % 0; Myelocytes % 0; Promyelocytes % 0; Reactive Lymphocytes 0
[2022-07-18] MEDS: ACCU-CHEK COMFORT CURVE STRIP VI SCH ×4 (00:42→17:53)
[2022-07-18] MEDS: InsuLIN REG 1unit/0.01ml Soln (100units/ml) SC SCH ×4 (00:43→17:57)
[2022-07-18 00:52] LABS: Albumin 2.2 g/dL (3.4-5.0); Calcium 7.8 mg/dL (8.5-10.1); Potassium 3.5 mmol/L (3.5-5.1)
[2022-07-18 01:03] LABS: Bilirubin, Total 19.2 mg/dL (0.2-1.0); Phosphorus 2.5 mg/dL (2.5-4.90); Total Protein 5.2 g/dL (6.4-8.2)
[2022-07-18] MEDS ORDERED: LORazepam 2MG/ML-1ML VIAL IV PRN (01:30)
[2022-07-18 01:54] LABS: Monocytes % (manual) 10 (0-12)
[2022-07-18 01:57] LABS: Band Neutrophils % (manual) 12; Lymphocytes % (manual) 3 (10.0-50.0)
[2022-07-18] MEDS: ALBUTEROL MEDNEB 2.5 mg/3ml NEB NEB SCH ×6 (02:05→22:23)
[2022-07-18] MEDS: IPRATROPIUM BROM 0.5 MG/2.5ML INH SOL NEB SCH ×6 (02:05→22:23)
[2022-07-18] MEDS: VANCOMYCIN 1GM/250ML 250 ML IV SCH ×4 (03:04→21:12)
[2022-07-18] MEDS: PHENYLEPHRINE IV 250 ML IV SCH ×3 (03:50→20:30)
[2022-07-18] MEDS: MEROPENEM 1GM IVPB 100 ML IV SCH ×3 (05:39→22:00)
[2022-07-18] MEDS: PANTOPRAZOLE 40 MG/10 ML VIAL INJ IV SCH ×2 (09:44→21:11)
[2022-07-18] MEDS: SODIUM CHLOR 0.9% PF (SALINE LOCK) 10ML VIAL/SYR IV SCH ×2 (09:45→21:46)
[2022-07-18] MEDS: methylPREDNISolone SOD SUCC 40 MG/ML VL IV SCH ×2 (09:45→21:11)
[2022-07-18] MEDS: ACETYLCYSTEINE 10 %(100MG/ML) SOL 4ML NEB SCH ×3 (10:01→19:07)
[2022-07-18] MEDS ORDERED: POTASSIUM PHOSPHATE 22 MEQ in SODIUM CHL 0.9% 100 ML IV ONE (12:15)
[2022-07-18] MEDS ORDERED: VANCOMYCIN 1GM/250ML 250 ML IV SCH (13:00)
[2022-07-18] MEDS: BUMETANIDE 2.5mg/10ml (0.25 mg/ml) INJ IV SCH (17:31)
[2022-07-18] MEDS: PROPOFOL 100 ML IV SCH (17:57)
[2022-07-18] MEDS ORDERED: SODIUM PHOSPHATES IV NR ×10 (20:00)
[2022-07-18] MEDS ORDERED: POTASSIUM PHOSPHATE IV NR ×10 (20:00)
[2022-07-18] MEDS ORDERED: [UNRECOGNIZED DRUG - OTHER] IV NR ×10 (20:00)
[2022-07-18] MEDS ORDERED: FAT EMULSION IV NR ×10 (20:00)
[2022-07-19] VITALS (23 sets, daily range): BP systolic 108–147; BP diastolic 54–87
[2022-07-19] MEDS: ALBUTEROL MEDNEB 2.5 mg/3ml NEB NEB SCH ×6 (02:48→21:46)
[2022-07-19] MEDS: IPRATROPIUM BROM 0.5 MG/2.5ML INH SOL NEB SCH ×6 (02:48→21:46)
[2022-07-19] MEDS: VANCOMYCIN 1GM/250ML 250 ML IV SCH ×4 (03:00→20:48)
[2022-07-19] MEDS: PHENYLEPHRINE IV 250 ML IV SCH ×3 (04:50→20:56)
[2022-07-19 05:11] LABS: Hemoglobin 7.5 g/dL (13.5-17.5)
[2022-07-19 05:13] LABS: Hematocrit 21.4 % (41.0-53.0); Mean Corpuscular Hemoglobin 33.4 pg (28.0-32.0); Mean Corpuscular Hgb Conc. 35.1 g/dL (32.0-36.0); Mean Corpuscular Volume 95.1 fL (80.0-100.0); Red Blood Cells 2.25 10^6/uL (4.5-5.90); White Blood Cell 25.2 10^3/uL (4.4-10.8)
[2022-07-19 05:16] LABS: Red Cell Distribution Width 21.3 % (11.8-14.3)
[2022-07-19 05:17] LABS: Basophils % (manual) 0 (0.0-2.0); Blast Cells 0; Eosinophils % (manual) 0 (0-7); Metamyelocytes % 0; Myelocytes % 0; Promyelocytes % 0
[2022-07-19 05:24] LABS: Calcium 7.9 mg/dL (8.5-10.1); Magnesium 1.9 mg/dL (1.6-2.6)
[2022-07-19 05:30] LABS: Albumin 2.1 g/dL (3.4-5.0); Bilirubin, Total 16.8 mg/dL (0.2-1.0); CRP High Sensitivity 0.92 mg/dL (< 0.3); Phosphorus 3.3 mg/dL (2.5-4.90); Total Protein 4.9 g/dL (6.4-8.2)
[2022-07-19] MEDS: BUMETANIDE 2.5mg/10ml (0.25 mg/ml) INJ IV SCH ×2 (06:00→18:10)
[2022-07-19] MEDS: MEROPENEM 1GM IVPB 100 ML IV SCH ×4 (06:00→22:30)
[2022-07-19] MEDS: ACCU-CHEK COMFORT CURVE STRIP VI SCH ×4 (06:00→17:30)
[2022-07-19] MEDS: InsuLIN REG 1unit/0.01ml Soln (100units/ml) SC SCH ×3 (07:00→17:38)
[2022-07-19 07:53] LABS: Band Neutrophils % (manual) 11; Lymphocytes % (manual) 2 (10.0-50.0); Monocytes % (manual) 4 (0-12); Reactive Lymphocytes 1
[2022-07-19] MEDS: SODIUM CHLOR 0.9% PF (SALINE LOCK) 10ML VIAL/SYR IV SCH ×2 (09:50→20:51)
[2022-07-19] MEDS: methylPREDNISolone SOD SUCC 40 MG/ML VL IV SCH ×2 (09:50→20:54)
[2022-07-19] MEDS: PANTOPRAZOLE 40 MG/10 ML VIAL INJ IV SCH ×2 (09:50→20:48)
[2022-07-19] MEDS ORDERED: DOXYCYCLINE 100 MG TAB/CAP PO ONE (11:45)
[2022-07-19] MEDS: ACETYLCYSTEINE 10 %(100MG/ML) SOL 4ML NEB SCH ×3 (15:51→19:25)
[2022-07-19] MEDS ORDERED: CALCIUM GLUC IV NR ×9 (20:00)
[2022-07-19] MEDS ORDERED: FAT EMULSION IV NR ×9 (20:00)
[2022-07-19] MEDS ORDERED: SODIUM PHOSPHATES IV NR ×9 (20:00)
[2022-07-19] MEDS ORDERED: [UNRECOGNIZED DRUG - OTHER] IV NR ×9 (20:00)
[2022-07-19] MEDS: DOXYCYCLINE 100 MG TAB/CAP PO SCH (20:56)
[2022-07-19] MEDS ORDERED: LORazepam 2MG/ML-1ML VIAL IV PRN (22:30)
[2022-07-20] VITALS (44 sets, daily range): BP systolic 109–134; BP diastolic 55–81
[2022-07-20] MEDS: ACCU-CHEK COMFORT CURVE STRIP VI SCH ×3 (00:18→16:56)
[2022-07-20] MEDS: VANCOMYCIN 1GM/250ML 250 ML IV SCH ×4 (04:15→20:49)
[2022-07-20] MEDS: BUMETANIDE 2.5mg/10ml (0.25 mg/ml) INJ IV SCH ×2 (04:58→18:00)
[2022-07-20] MEDS: MEROPENEM 1GM IVPB 100 ML IV SCH (05:22)
[2022-07-20] MEDS: InsuLIN REG 1unit/0.01ml Soln (100units/ml) SC SCH ×3 (06:00→12:00)
[2022-07-20 06:15] LABS: Hematocrit 21.7 % (41.0-53.0); Hemoglobin 7.7 g/dL (13.5-17.5); Mean Corpuscular Hemoglobin 33.6 pg (28.0-32.0); Mean Corpuscular Hgb Conc. 35.2 g/dL (32.0-36.0); Mean Corpuscular Volume 95.5 fL (80.0-100.0); Red Blood Cells 2.28 10^6/uL (4.5-5.90)
[2022-07-20 06:31] LABS: Potassium 3.8 mmol/L (3.5-5.1)
[2022-07-20 06:42] LABS: Albumin 2.1 g/dL (3.4-5.0); BUN/Creatinine Ratio 55.8; Calcium 7.6 mg/dL (8.5-10.1); Magnesium 1.9 mg/dL (1.6-2.6); Phosphorus 2.9 mg/dL (2.5-4.90); Red Cell Distribution Width 21.6 % (11.8-14.3)
[2022-07-20 06:43] LABS: Basophils % (manual) 0 (0.0-2.0); Blast Cells 0; Eosinophils % (manual) 0 (0-7); Promyelocytes % 0; Reactive Lymphocytes 0
[2022-07-20 06:45] LABS: Bilirubin, Total 15.3 mg/dL (0.2-1.0)
[2022-07-20 08:26] LABS: Band Neutrophils % (manual) 9; Lymphocytes % (manual) 2 (10.0-50.0); Metamyelocytes % 1; Monocytes % (manual) 6 (0-12); Myelocytes % 1
[2022-07-20] MEDS: DOXYCYCLINE 100 MG TAB/CAP PO SCH ×2 (10:00→21:42)
[2022-07-20] MEDS: SODIUM CHLOR 0.9% PF (SALINE LOCK) 10ML VIAL/SYR IV SCH ×2 (10:37→21:42)
[2022-07-20] MEDS: PANTOPRAZOLE 40 MG/10 ML VIAL INJ IV SCH ×2 (10:37→21:42)
[2022-07-20] MEDS: methylPREDNISolone SOD SUCC 40 MG/ML VL IV SCH (10:38)
[2022-07-20] MEDS ORDERED: MIDAZOLAM HCL 2MG/2ML 2ml VIAL (1mg/ml) ONE (11:53)
[2022-07-20] MEDS ORDERED: diphenhdrAMINE HCL 50 MG/1 ML VL ONE (11:54)
[2022-07-20] MEDS ORDERED: fentaNYL CITRATE 100 MCG/2 ML VL ONE (11:54)
[2022-07-20] MEDS ORDERED: fentaNYL CITRATE 100 MCG/2 ML VL IV ONE ×3 (12:44→12:48)
[2022-07-20] MEDS ORDERED: MIDAZOLAM HCL 2MG/2ML 2ml VIAL (1mg/ml) IV ONE ×2 (12:44→12:48)
[2022-07-20] MEDS ORDERED: diphenhdrAMINE HCL 50 MG/1 ML VL IV ONE ×2 (12:44→12:45)
[2022-07-20] MEDS ORDERED: MIDAZOLAM HCL 5 MG/ML-1ML VIAL IV ONE (12:45)
[2022-07-20 13:27] LABS: Hematocrit 17.9 % (41.0-53.0)
[2022-07-20 13:58] LABS: Hemoglobin 6.3 g/dL (13.5-17.5)
[2022-07-20] MEDS: IPRATROPIUM BROM 0.5 MG/2.5ML INH SOL NEB SCH ×6 (14:00→22:00)
[2022-07-20] MEDS: ALBUTEROL MEDNEB 2.5 mg/3ml NEB NEB SCH ×6 (14:00→22:00)
[2022-07-20] MEDS: ACETYLCYSTEINE 10 %(100MG/ML) SOL 4ML NEB SCH ×3 (14:00→22:00)
[2022-07-20] MEDS ORDERED: SODIUM PHOSPHATES IV NR ×10 (20:00)
[2022-07-20] MEDS ORDERED: [UNRECOGNIZED DRUG - OTHER] IV NR ×10 (20:00)
[2022-07-20] MEDS ORDERED: FAT EMULSION IV NR ×10 (20:00)
[2022-07-20] MEDS ORDERED: SODIUM CHLORIDE IV NR ×10 (20:00)
[2022-07-20] MEDS: LORazepam 2MG/ML-1ML VIAL IV PRN (21:41)
[2022-07-21] VITALS (37 sets, daily range): BP systolic 104–132; BP diastolic 53–72
[2022-07-21] MEDS: VANCOMYCIN 1GM/250ML 250 ML IV SCH ×4 (02:52→21:11)
[2022-07-21 05:04] LABS: Mean Corpuscular Volume 98.4 fL (80.0-100.0)
[2022-07-21 05:07] LABS: Hematocrit 25.3 % (41.0-53.0); Hemoglobin 8.5 g/dL (13.5-17.5); Mean Corpuscular Hemoglobin 32.9 pg (28.0-32.0); Mean Corpuscular Hgb Conc. 33.4 g/dL (32.0-36.0); Red Blood Cells 2.57 10^6/uL (4.5-5.90)
[2022-07-21 05:19] LABS: Calcium 7.4 mg/dL (8.5-10.1); Magnesium 1.8 mg/dL (1.6-2.6); Potassium 3.7 mmol/L (3.5-5.1)
[2022-07-21 05:22] LABS: Bilirubin, Total 16.1 mg/dL (0.2-1.0); Phosphorus 3.2 mg/dL (2.5-4.90); Total Protein 4.5 g/dL (6.4-8.2)
[2022-07-21 05:31] LABS: White Blood Cell 35.2 10^3/uL (4.4-10.8)
[2022-07-21 05:32] LABS: Basophils % (manual) 0 (0.0-2.0); Blast Cells 0; Metamyelocytes % 0; Promyelocytes % 0; Reactive Lymphocytes 0
[2022-07-21] MEDS: BUMETANIDE 2.5mg/10ml (0.25 mg/ml) INJ IV SCH ×2 (05:34→17:08)
[2022-07-21] MEDS: IPRATROPIUM BROM 0.5 MG/2.5ML INH SOL NEB SCH ×5 (06:29→22:00)
[2022-07-21] MEDS: ACETYLCYSTEINE 10 %(100MG/ML) SOL 4ML NEB SCH ×3 (06:29→22:00)
[2022-07-21] MEDS: ALBUTEROL MEDNEB 2.5 mg/3ml NEB NEB SCH ×5 (06:29→22:00)
[2022-07-21] MEDS: cefTRIAXone 1GM/50ML D5W 50 ML IV SCH (08:02)
[2022-07-21] MEDS: ONDANSETRON HCL 4 MG/2 ML VIAL IV PRN (09:00)
[2022-07-21] MEDS: PANTOPRAZOLE 40 MG/10 ML VIAL INJ IV SCH ×2 (09:29→21:11)
[2022-07-21] MEDS: SODIUM CHLOR 0.9% PF (SALINE LOCK) 10ML VIAL/SYR IV SCH ×2 (09:29→21:11)
[2022-07-21] MEDS: DOXYCYCLINE 100 MG TAB/CAP PO SCH ×2 (09:29→21:11)
[2022-07-21 09:32] LABS: INR 2.01 (0.9-1.15)
[2022-07-21] MEDS ORDERED: PHYTONADIONE(VitK) ORAL Susp 10mg/10ml(1mg/ml) PO ONE (10:00)
[2022-07-21] MEDS: HYDROcodone-ACET 5/325MG TAB PO PRN ×3 (10:43→23:28)
[2022-07-21 11:30] LABS: Band Neutrophils % (manual) 2; Eosinophils % (manual) 1 (0-7); Lymphocytes % (manual) 6 (10.0-50.0); Monocytes % (manual) 5 (0-12); Myelocytes % 2
[2022-07-21 13:41] LABS: Hematocrit 17.1 % (41.0-53.0)
[2022-07-21 13:54] LABS: Hemoglobin 5.9 g/dL (13.5-17.5)
[2022-07-21 23:54] LABS: Hematocrit 20.5 % (41.0-53.0); Mean Corpuscular Hemoglobin 31.8 pg (28.0-32.0); Mean Corpuscular Hgb Conc. 33.9 g/dL (32.0-36.0); Mean Corpuscular Volume 93.9 fL (80.0-100.0); Red Blood Cells 2.19 10^6/uL (4.5-5.90); Red Cell Distribution Width 17.2 % (11.8-14.3)
[2022-07-22] VITALS (16 sets, daily range): BP systolic 101–112; BP diastolic 44–64
[2022-07-22 00:02] LABS: White Blood Cell 35.4 10^3/uL (4.4-10.8)
[2022-07-22 00:05] LABS: Basophils % (manual) 0 (0.0-2.0); Blast Cells 0; Eosinophils % (manual) 0 (0-7); Metamyelocytes % 0; Myelocytes % 0; Promyelocytes % 0; Reactive Lymphocytes 0
[2022-07-22 00:52] LABS: Band Neutrophils % (manual) 6; Lymphocytes % (manual) 8 (10.0-50.0); Monocytes % (manual) 5 (0-12)
[2022-07-22] MEDS: ALBUTEROL MEDNEB 2.5 mg/3ml NEB NEB SCH ×5 (02:00→22:00)
[2022-07-22] MEDS: IPRATROPIUM BROM 0.5 MG/2.5ML INH SOL NEB SCH ×5 (02:00→22:00)
[2022-07-22] MEDS: VANCOMYCIN 1GM/250ML 250 ML IV SCH ×4 (03:05→17:22)
[2022-07-22 05:29] LABS: Red Blood Cells 1.94 10^6/uL (4.5-5.90)
[2022-07-22 05:30] LABS: Albumin 1.7 g/dL (3.4-5.0); Calcium 6.9 mg/dL (8.5-10.1); Potassium 3.3 mmol/L (3.5-5.1)
[2022-07-22 05:31] LABS: Hematocrit 18.1 % (41.0-53.0); Mean Corpuscular Hgb Conc. 34.3 g/dL (32.0-36.0); Mean Corpuscular Volume 93.3 fL (80.0-100.0); Red Cell Distribution Width 17.1 % (11.8-14.3)
[2022-07-22 05:35] LABS: BUN/Creatinine Ratio 56.5; Total Protein 3.8 g/dL (6.4-8.2)
[2022-07-22 05:40] LABS: Hemoglobin 6.2 g/dL (13.5-17.5); White Blood Cell 35.5 10^3/uL (4.4-10.8)
[2022-07-22 05:42] LABS: Basophils % (manual) 0 (0.0-2.0); Blast Cells 0; Metamyelocytes % 0; Myelocytes % 0; Promyelocytes % 0; Reactive Lymphocytes 0
[2022-07-22] MEDS: BUMETANIDE 2.5mg/10ml (0.25 mg/ml) INJ IV SCH ×2 (06:34→17:23)
[2022-07-22] MEDS: ACETYLCYSTEINE 10 %(100MG/ML) SOL 4ML NEB SCH ×2 (07:41→22:00)
[2022-07-22 07:50] LABS: Band Neutrophils % (manual) 11; Eosinophils % (manual) 1 (0-7); Lymphocytes % (manual) 2 (10.0-50.0); Monocytes % (manual) 8 (0-12)
[2022-07-22] MEDS: HYDROcodone-ACET 5/325MG TAB PO PRN ×2 (10:01→21:54)
[2022-07-22] MEDS: DOXYCYCLINE 100 MG TAB/CAP PO SCH ×2 (10:01→21:40)
[2022-07-22] MEDS: PANTOPRAZOLE 40 MG/10 ML VIAL INJ IV SCH ×2 (10:02→21:38)
[2022-07-22] MEDS: SODIUM CHLOR 0.9% PF (SALINE LOCK) 10ML VIAL/SYR IV SCH ×2 (10:02→21:39)
[2022-07-22] MEDS: cefTRIAXone 1GM/50ML D5W 50 ML IV SCH (10:05)
[2022-07-22] MEDS ORDERED: POTASSIUM EFFERVESENT TAB 25 MEQ PO ONE (11:45)
[2022-07-22] MEDS: LACTULOSE 20Gm/30ML SOLN PO SCH ×2 (12:16→17:34)
[2022-07-22] MEDS: ONDANSETRON HCL 4 MG/2 ML VIAL IV PRN (22:25)
[2022-07-23] VITALS (27 sets, daily range): BP systolic 99–109; BP diastolic 51–61
[2022-07-23] MEDS: IPRATROPIUM BROM 0.5 MG/2.5ML INH SOL NEB SCH ×2 (02:00→06:00)
[2022-07-23] MEDS: ALBUTEROL MEDNEB 2.5 mg/3ml NEB NEB SCH ×2 (02:00→06:00)
[2022-07-23] MEDS: LACTULOSE 20Gm/30ML SOLN PO SCH ×3 (04:05→12:00)
[2022-07-23] MEDS: VANCOMYCIN 1GM/250ML 250 ML IV SCH ×3 (04:05→06:00)
[2022-07-23 05:59] LABS: Mean Corpuscular Hemoglobin 31.6 pg (28.0-32.0)
[2022-07-23] MEDS: BUMETANIDE 2.5mg/10ml (0.25 mg/ml) INJ IV SCH (06:00)
[2022-07-23] MEDS: ACETYLCYSTEINE 10 %(100MG/ML) SOL 4ML NEB SCH (06:00)
[2022-07-23 06:04] LABS: Hematocrit 17.4 % (41.0-53.0); Mean Corpuscular Hgb Conc. 34.1 g/dL (32.0-36.0); Mean Corpuscular Volume 92.7 fL (80.0-100.0); Red Blood Cells 1.87 10^6/uL (4.5-5.90); Red Cell Distribution Width 17.1 % (11.8-14.3)
[2022-07-23 06:16] LABS: Hemoglobin 5.9 g/dL (13.5-17.5); White Blood Cell 32.2 10^3/uL (4.4-10.8)
[2022-07-23 06:17] LABS: Basophils % (manual) 0 (0.0-2.0); Blast Cells 0; Eosinophils % (manual) 0 (0-7); Metamyelocytes % 0; Promyelocytes % 0; Reactive Lymphocytes 0
[2022-07-23 06:32] LABS: Calcium 7.4 mg/dL (8.5-10.1); Potassium 3.5 mmol/L (3.5-5.1)
[2022-07-23 06:35] LABS: Albumin 1.7 g/dL (3.4-5.0); BUN/Creatinine Ratio 62.5
[2022-07-23 06:47] LABS: Bilirubin, Total 12.8 mg/dL (0.2-1.0); Total Protein 3.7 g/dL (6.4-8.2)
[2022-07-23] MEDS: ONDANSETRON HCL 4 MG/2 ML VIAL IV PRN ×2 (06:50→11:53)
[2022-07-23 07:59] LABS: Band Neutrophils % (manual) 28; Lymphocytes % (manual) 3 (10.0-50.0); Monocytes % (manual) 10 (0-12); Myelocytes % 1
[2022-07-23] MEDS ORDERED: IPRATROPIUM BROM 0.5 MG/2.5ML INH SOL NEB PRN (08:15)
[2022-07-23] MEDS ORDERED: ALBUTEROL SULF 2.5 MG/0.5ML(0.5%) NEB SOLN NEB PRN (08:15)
[2022-07-23] MEDS: cefTRIAXone 1GM/50ML D5W 50 ML IV SCH (09:00)
[2022-07-23] MEDS: SODIUM CHLOR 0.9% PF (SALINE LOCK) 10ML VIAL/SYR IV SCH ×2 (10:00→21:19)
[2022-07-23 10:37] LABS: INR 1.71 (0.9-1.15)
[2022-07-23] MEDS: HYDROcodone-ACET 5/325MG TAB PO PRN (11:56)
[2022-07-23] MEDS: DOXYCYCLINE 100 MG TAB/CAP PO SCH ×2 (12:13→21:19)
[2022-07-23] MEDS: PANTOPRAZOLE 40 MG/10 ML VIAL INJ IV SCH ×2 (12:13→21:19)
[2022-07-23 22:37] LABS: Hemoglobin 7.5 g/dL (13.5-17.5); Mean Corpuscular Hemoglobin 30.5 pg (28.0-32.0); Mean Corpuscular Hgb Conc. 33.9 g/dL (32.0-36.0); Red Blood Cells 2.44 10^6/uL (4.5-5.90); Red Cell Distribution Width 15.7 % (11.8-14.3); White Blood Cell 26.2 10^3/uL (4.4-10.8)
[2022-07-23 22:43] LABS: Basophils % (manual) 0 (0.0-2.0); Blast Cells 0; Eosinophils % (manual) 0 (0-7); Metamyelocytes % 0; Myelocytes % 0; Promyelocytes % 0; Reactive Lymphocytes 0
[2022-07-23 23:09] LABS: Band Neutrophils % (manual) 10; Lymphocytes % (manual) 7 (10.0-50.0); Monocytes % (manual) 10 (0-12)
[2022-07-24] VITALS (26 sets, daily range): BP systolic 98–124; BP diastolic 50–73
[2022-07-24] MEDS: BUMETANIDE 2.5mg/10ml (0.25 mg/ml) INJ IV SCH ×2 (05:13→18:28)
[2022-07-24] MEDS: LACTULOSE 20Gm/30ML SOLN PO SCH ×4 (05:13→18:00)
[2022-07-24 05:23] LABS: Hematocrit 20.2 % (41.0-53.0); Mean Corpuscular Hemoglobin 31.2 pg (28.0-32.0); Mean Corpuscular Hgb Conc. 33.8 g/dL (32.0-36.0); Mean Corpuscular Volume 92.3 fL (80.0-100.0); Red Blood Cells 2.19 10^6/uL (4.5-5.90); Red Cell Distribution Width 15.4 % (11.8-14.3); White Blood Cell 26.9 10^3/uL (4.4-10.8)
[2022-07-24 05:36] LABS: Albumin 1.7 g/dL (3.4-5.0); Calcium 6.9 mg/dL (8.5-10.1); Potassium 3.5 mmol/L (3.5-5.1)
[2022-07-24 05:38] LABS: Hemoglobin 6.8 g/dL (13.5-17.5)
[2022-07-24 05:39] LABS: BUN/Creatinine Ratio 58.8; Bilirubin, Total 11.8 mg/dL (0.2-1.0); Total Protein 3.7 g/dL (6.4-8.2)
[2022-07-24 05:41] LABS: Basophils % (manual) 0 (0.0-2.0); Blast Cells 0; Metamyelocytes % 0; Myelocytes % 0; Promyelocytes % 0; Reactive Lymphocytes 0
[2022-07-24] MEDS: cefTRIAXone 1GM/50ML D5W 50 ML IV SCH (08:40)
[2022-07-24 08:47] LABS: Band Neutrophils % (manual) 15; Eosinophils % (manual) 1 (0-7); Lymphocytes % (manual) 5 (10.0-50.0); Monocytes % (manual) 10 (0-12)
[2022-07-24] MEDS: SODIUM CHLOR 0.9% PF (SALINE LOCK) 10ML VIAL/SYR IV SCH ×2 (10:02→22:29)
[2022-07-24] MEDS: PANTOPRAZOLE 40 MG/10 ML VIAL INJ IV SCH ×2 (10:02→22:29)
[2022-07-24] MEDS: DOXYCYCLINE 100 MG TAB/CAP PO SCH ×2 (10:02→22:30)
[2022-07-24] MEDS ORDERED: VANCOMYCIN 1GM/250ML 250 ML IV ONE (12:00)
[2022-07-24] MEDS: HYDROcodone-ACET 5/325MG TAB PO PRN ×2 (15:04→23:34)
[2022-07-24 20:41] LABS: Hematocrit 23.3 % (41.0-53.0); Hemoglobin 7.8 g/dL (13.5-17.5); Mean Corpuscular Hemoglobin 31.2 pg (28.0-32.0); Mean Corpuscular Hgb Conc. 33.5 g/dL (32.0-36.0); Mean Corpuscular Volume 93.1 fL (80.0-100.0); Red Blood Cells 2.51 10^6/uL (4.5-5.90); Red Cell Distribution Width 16.6 % (11.8-14.3)
[2022-07-24 20:50] LABS: White Blood Cell 33.8 10^3/uL (4.4-10.8)
[2022-07-24 20:51] LABS: Eosinophils % (manual) 0 (0-7)
[2022-07-24 20:52] LABS: Basophils % (manual) 0 (0.0-2.0); Blast Cells 0; Metamyelocytes % 0; Myelocytes % 0; Promyelocytes % 0; Reactive Lymphocytes 0
[2022-07-24 21:40] LABS: Band Neutrophils % (manual) 6; Lymphocytes % (manual) 3 (10.0-50.0); Monocytes % (manual) 9 (0-12)
[2022-07-25] VITALS (69 sets, daily range): BP systolic 103–124; BP diastolic 51–81
[2022-07-25] MEDS: LACTULOSE 20Gm/30ML SOLN PO SCH ×5 (00:58→18:00)
[2022-07-25 04:57] LABS: Hematocrit 19.9 % (41.0-53.0); Mean Corpuscular Hemoglobin 31.1 pg (28.0-32.0); Mean Corpuscular Hgb Conc. 33.4 g/dL (32.0-36.0); Mean Corpuscular Volume 93.2 fL (80.0-100.0); Red Blood Cells 2.13 10^6/uL (4.5-5.90); Red Cell Distribution Width 17.5 % (11.8-14.3)
[2022-07-25] MEDS: BUMETANIDE 2.5mg/10ml (0.25 mg/ml) INJ IV SCH ×2 (05:07→18:56)
[2022-07-25 05:13] LABS: Albumin 1.6 g/dL (3.4-5.0); Calcium 6.8 mg/dL (8.5-10.1); Potassium 3.4 mmol/L (3.5-5.1)
[2022-07-25 05:16] LABS: BUN/Creatinine Ratio 64.5; Bilirubin, Total 11.3 mg/dL (0.2-1.0); Total Protein 3.5 g/dL (6.4-8.2)
[2022-07-25 05:26] LABS: Basophils % (manual) 0 (0.0-2.0); Blast Cells 0; Eosinophils % (manual) 0 (0-7); Hemoglobin 6.6 g/dL (13.5-17.5); Metamyelocytes % 0; Myelocytes % 0; Promyelocytes % 0; Reactive Lymphocytes 0; White Blood Cell 32.3 10^3/uL (4.4-10.8)
[2022-07-25] MEDS: HYDROcodone-ACET 5/325MG TAB PO PRN ×2 (08:25→16:13)
[2022-07-25] MEDS: cefTRIAXone 1GM/50ML D5W 50 ML IV SCH (08:45)
[2022-07-25] MEDS: PANTOPRAZOLE 40 MG/10 ML VIAL INJ IV SCH ×2 (10:22→21:26)
[2022-07-25] MEDS: DOXYCYCLINE 100 MG TAB/CAP PO SCH (10:22)
[2022-07-25] MEDS: SERTRALINE HCL 50 MG TAB PO SCH (10:25)
[2022-07-25] MEDS: SODIUM CHLOR 0.9% PF (SALINE LOCK) 10ML VIAL/SYR IV SCH ×2 (10:27→21:27)
[2022-07-25] MEDS ORDERED: MICAFUNGIN SODIUM 100 MG in SODIUM CHL 0.9% 100 ML IV ONE (10:30)
[2022-07-25 10:36] LABS: Band Neutrophils % (manual) 1; Lymphocytes % (manual) 6 (10.0-50.0)
[2022-07-25 10:37] LABS: Monocytes % (manual) 1 (0-12)
[2022-07-25] MEDS: VANCOMYCIN 1GM/250ML 250 ML IV SCH (12:47)
[2022-07-25 13:24] LABS: INR 1.76 (0.9-1.15); Partial Thromboplastin Time 40.7 sec (24.6-33.4)
[2022-07-25] MEDS ORDERED: CALCIUM CARB 500 MG CHEW TAB PO PRN (14:00)
[2022-07-25] MEDS: COAGULATION FACTOR VIIA (RECOM 2 MG INJ IV SCH (18:00)
[2022-07-26] VITALS (31 sets, daily range): BP systolic 108–123; BP diastolic 52–69
[2022-07-26] MEDS: LACTULOSE 20Gm/30ML SOLN PO SCH ×2 (01:05→06:37)
[2022-07-26] MEDS: COAGULATION FACTOR VIIA (RECOM 2 MG INJ IV SCH ×3 (01:05→14:14)
[2022-07-26] MEDS: VANCOMYCIN 1GM/250ML 250 ML IV SCH ×2 (05:15→21:45)
[2022-07-26] MEDS: BUMETANIDE 2.5mg/10ml (0.25 mg/ml) INJ IV SCH ×2 (05:15→19:58)
[2022-07-26 05:59] LABS: Hematocrit 18.8 % (41.0-53.0); Mean Corpuscular Hemoglobin 32.5 pg (28.0-32.0); Mean Corpuscular Hgb Conc. 34.3 g/dL (32.0-36.0); Mean Corpuscular Volume 94.9 fL (80.0-100.0); Red Blood Cells 1.98 10^6/uL (4.5-5.90); Red Cell Distribution Width 16.8 % (11.8-14.3)
[2022-07-26 06:03] LABS: INR 1.17 (0.9-1.15)
[2022-07-26 06:09] LABS: Potassium 3.4 mmol/L (3.5-5.1)
[2022-07-26 06:16] LABS: Albumin 1.7 g/dL (3.4-5.0); BUN/Creatinine Ratio 71.1; Bilirubin, Total 10.6 mg/dL (0.2-1.0); Total Protein 3.6 g/dL (6.4-8.2)
[2022-07-26 06:24] LABS: Hemoglobin 6.4 g/dL (13.5-17.5); White Blood Cell 31.8 10^3/uL (4.4-10.8)
[2022-07-26 06:26] LABS: Basophils % (manual) 0 (0.0-2.0); Blast Cells 0; Eosinophils % (manual) 0 (0-7); Metamyelocytes % 0; Myelocytes % 0; Promyelocytes % 0; Reactive Lymphocytes 0
[2022-07-26 07:23] LABS: Band Neutrophils % (manual) 8; Lymphocytes % (manual) 10 (10.0-50.0); Monocytes % (manual) 11 (0-12)
[2022-07-26] MEDS ORDERED: POTASSIUM CHL 20 Meq TABLET PO ONE (08:00)
[2022-07-26] MEDS: PANTOPRAZOLE 40 MG/10 ML VIAL INJ IV SCH ×2 (10:51→21:45)
[2022-07-26] MEDS: SERTRALINE HCL 50 MG TAB PO SCH (10:52)
[2022-07-26] MEDS: SODIUM CHLOR 0.9% PF (SALINE LOCK) 10ML VIAL/SYR IV SCH ×2 (10:52→22:00)
[2022-07-26] MEDS: cefTRIAXone 1GM/50ML D5W 50 ML IV SCH (10:52)
[2022-07-26] MEDS: MICAFUNGIN SODIUM 100 MG in SODIUM CHL 0.9% 100 ML IV SCH (12:00)
[2022-07-26 13:29] LABS: Hematocrit 18.5 % (41.0-53.0); Mean Corpuscular Hemoglobin 32.6 pg (28.0-32.0); Mean Corpuscular Hgb Conc. 34.2 g/dL (32.0-36.0); Mean Corpuscular Volume 95.1 fL (80.0-100.0); Red Blood Cells 1.95 10^6/uL (4.5-5.90); Red Cell Distribution Width 17.7 % (11.8-14.3)
[2022-07-26 13:40] LABS: White Blood Cell 31.6 10^3/uL (4.4-10.8)
[2022-07-26 13:41] LABS: Hemoglobin 6.3 g/dL (13.5-17.5)
[2022-07-26 13:42] LABS: Basophils % (manual) 0 (0.0-2.0); Blast Cells 0; Metamyelocytes % 0; Myelocytes % 0; Promyelocytes % 0; Reactive Lymphocytes 0
[2022-07-26 14:26] LABS: Band Neutrophils % (manual) 21; Eosinophils % (manual) 1 (0-7); Lymphocytes % (manual) 4 (10.0-50.0); Monocytes % (manual) 4 (0-12)
[2022-07-26] MEDS: HYDROcodone-ACET 5/325MG TAB PO PRN ×2 (16:41→22:54)
[2022-07-27] VITALS (30 sets, daily range): BP systolic 101–129; BP diastolic 53–70
[2022-07-27 05:00] LABS: Hemoglobin 7.5 g/dL (13.5-17.5); White Blood Cell 27.2 10^3/uL (4.4-10.8)
[2022-07-27 05:02] LABS: Hematocrit 22.1 % (41.0-53.0); Mean Corpuscular Hemoglobin 32.2 pg (28.0-32.0); Mean Corpuscular Hgb Conc. 33.8 g/dL (32.0-36.0); Mean Corpuscular Volume 95.3 fL (80.0-100.0); Red Blood Cells 2.32 10^6/uL (4.5-5.90); Red Cell Distribution Width 16.6 % (11.8-14.3)
[2022-07-27 05:11] LABS: INR 1.34 (0.9-1.15); Partial Thromboplastin Time 33.9 sec (24.6-33.4)
[2022-07-27 05:12] LABS: Basophils % (manual) 0 (0.0-2.0); Blast Cells 0; Metamyelocytes % 0; Myelocytes % 0; Promyelocytes % 0; Reactive Lymphocytes 0
[2022-07-27 05:13] LABS: Albumin 1.8 g/dL (3.4-5.0); Calcium 7.2 mg/dL (8.5-10.1); Magnesium 1.9 mg/dL (1.6-2.6); Potassium 3.7 mmol/L (3.5-5.1)
[2022-07-27 05:17] LABS: BUN/Creatinine Ratio 67.1; Bilirubin, Total 10.1 mg/dL (0.2-1.0); Phosphorus 3.6 mg/dL (2.5-4.90); Total Protein 3.8 g/dL (6.4-8.2)
[2022-07-27] MEDS: BUMETANIDE 2.5mg/10ml (0.25 mg/ml) INJ IV SCH ×2 (06:13→19:19)
[2022-07-27 07:51] LABS: Band Neutrophils % (manual) 4; Eosinophils % (manual) 2 (0-7); Lymphocytes % (manual) 3 (10.0-50.0); Monocytes % (manual) 2 (0-12)
[2022-07-27] MEDS ORDERED: HYDROmorphone HCL 2 MG/ML VL/or syr IV PRN (08:00)
[2022-07-27] MEDS: ONDANSETRON HCL 4 MG/2 ML VIAL IV PRN (10:07)
[2022-07-27] MEDS: MICAFUNGIN SODIUM 100 MG in SODIUM CHL 0.9% 100 ML IV SCH (10:46)
[2022-07-27] MEDS: cefTRIAXone 1GM/50ML D5W 50 ML IV SCH (10:46)
[2022-07-27] MEDS: SODIUM CHLOR 0.9% PF (SALINE LOCK) 10ML VIAL/SYR IV SCH ×2 (10:47→21:25)
[2022-07-27] MEDS: LACTULOSE 20Gm/30ML SOLN PO SCH (10:47)
[2022-07-27] MEDS: SERTRALINE HCL 50 MG TAB PO SCH (10:47)
[2022-07-27] MEDS: PANTOPRAZOLE 40 MG/10 ML VIAL INJ IV SCH ×2 (10:47→21:25)
[2022-07-27] MEDS: VANCOMYCIN 1GM/250ML 250 ML IV SCH (14:11)
[2022-07-27 17:32] LABS: Hematocrit 18.6 % (41.0-53.0)
[2022-07-27 17:36] LABS: Hemoglobin 6.5 g/dL (13.5-17.5)
[2022-07-28] VITALS (31 sets, daily range): BP systolic 104–124; BP diastolic 51–62
[2022-07-28 02:45] LABS: Red Cell Distribution Width 15.7 % (11.8-14.3); White Blood Cell 25.9 10^3/uL (4.4-10.8)
[2022-07-28 02:47] LABS: Hematocrit 23.4 % (41.0-53.0); Mean Corpuscular Hemoglobin 31.7 pg (28.0-32.0); Mean Corpuscular Hgb Conc. 34.4 g/dL (32.0-36.0); Mean Corpuscular Volume 92.4 fL (80.0-100.0); Red Blood Cells 2.53 10^6/uL (4.5-5.90)
[2022-07-28 02:49] LABS: Basophils % (manual) 0 (0.0-2.0); Blast Cells 0; Eosinophils % (manual) 0 (0-7); Metamyelocytes % 0; Myelocytes % 0; Promyelocytes % 0; Reactive Lymphocytes 0
[2022-07-28 02:58] LABS: INR 1.77 (0.9-1.15)
[2022-07-28 03:01] LABS: Albumin 1.3 g/dL (3.4-5.0); BUN/Creatinine Ratio 60.3; Calcium 7.2 mg/dL (8.5-10.1); Potassium 3.8 mmol/L (3.5-5.1)
[2022-07-28 03:03] LABS: Bilirubin, Total 9.8 mg/dL (0.2-1.0); Total Protein 3.3 g/dL (6.4-8.2)
[2022-07-28 04:15] LABS: Band Neutrophils % (manual) 10; Lymphocytes % (manual) 4 (10.0-50.0)
[2022-07-28 04:16] LABS: Monocytes % (manual) 4 (0-12)
[2022-07-28] MEDS: VANCOMYCIN 1GM/250ML 250 ML IV SCH ×2 (05:01→20:35)
[2022-07-28] MEDS: BUMETANIDE 2.5mg/10ml (0.25 mg/ml) INJ IV SCH ×2 (05:07→18:10)
[2022-07-28] MEDS: SERTRALINE HCL 50 MG TAB PO SCH (09:15)
[2022-07-28] MEDS: cefTRIAXone 1GM/50ML D5W 50 ML IV SCH (09:15)
[2022-07-28] MEDS: PANTOPRAZOLE 40 MG/10 ML VIAL INJ IV SCH ×2 (09:16→21:29)
[2022-07-28] MEDS: LACTULOSE 20Gm/30ML SOLN PO SCH (10:00)
[2022-07-28] MEDS: SODIUM CHLOR 0.9% PF (SALINE LOCK) 10ML VIAL/SYR IV SCH ×2 (10:05→21:02)
[2022-07-28] MEDS: MICAFUNGIN SODIUM 100 MG in SODIUM CHL 0.9% 100 ML IV SCH (10:05)
[2022-07-28] MEDS ORDERED: PHYTONADIONE (VIT K)10 MG/ML 1ML VIAL SUBCUT ONE (11:45)
[2022-07-28] MEDS ORDERED: PHYTONADIONE(VitK) ORAL Susp 10mg/10ml(1mg/ml) PO ONE (11:45)
[2022-07-28 13:06] LABS: Hemoglobin 7.1 g/dL (13.5-17.5); Nucleated Red Blood Cells % 0.1 %
[2022-07-28 13:08] LABS: Basophils # (auto) 0.1 10 ^3/uL (0-0.2); Basophils % (auto) 0.4 % (0.0-2.0); Eosinophils # (auto) 0.2 10 ^3/uL (0-0.8); Eosinophils % (auto) 0.7 % (0.0-7.0); Hematocrit 20.8 % (41.0-53.0); Lymphocytes % (auto) 4.2 % (10.0-50.0); Mean Corpuscular Hemoglobin 32.3 pg (28.0-32.0); Mean Corpuscular Hgb Conc. 34.3 g/dL (32.0-36.0); Mean Corpuscular Volume 94.4 fL (80.0-100.0); Monocytes # (auto) 1.5 10 ^3/uL (0-1.3); Monocytes % (auto) 6.2 % (0.0-12.0); Neutrophils # (auto) 21.4 10 ^3/uL (1.6-8.6); Neutrophils % (auto) 88.5 % (37.0-80.0); Red Blood Cells 2.21 10^6/uL (4.5-5.90); Red Cell Distribution Width 16.5 % (11.8-14.3); White Blood Cell 24.2 10^3/uL (4.4-10.8)
[2022-07-28] MEDS ORDERED: SODIUM CHL 0.9% IV ONE (15:00)
[2022-07-28] MEDS ORDERED: AMINOCAPROIC ACID IV ONE (15:00)
[2022-07-28] MEDS ORDERED: AMINOCAPROIC ACID PO SCH (18:00)
[2022-07-28 19:01] LABS: Hematocrit 17.5 % (41.0-53.0)
[2022-07-28 19:22] LABS: Hemoglobin 6.1 g/dL (13.5-17.5)
[2022-07-28] MEDS: SODIUM CHL 0.9% IV SCH (21:00)
[2022-07-28] MEDS: AMINOCAPROIC ACID IV SCH (21:00)
[2022-07-28 22:02] LABS: Hematocrit 20.5 % (41.0-53.0)
[2022-07-29] VITALS (28 sets, daily range): BP systolic 101–122; BP diastolic 55–67
[2022-07-29] MEDS: SODIUM CHL 0.9% IV SCH ×4 (02:29→21:00)
[2022-07-29] MEDS: AMINOCAPROIC ACID IV SCH ×4 (02:29→21:00)
[2022-07-29 04:15] LABS: Basophils # (auto) 0.4 10 ^3/uL (0-0.2); Basophils % (auto) 1.7 % (0.0-2.0); Eosinophils # (auto) 0.2 10 ^3/uL (0-0.8); Eosinophils % (auto) 0.9 % (0.0-7.0); Hematocrit 25.5 % (41.0-53.0); Hemoglobin 8.7 g/dL (13.5-17.5); Lymphocytes # (auto) 1.3 10 ^3/uL (0.4-5.4); Mean Corpuscular Hemoglobin 31.6 pg (28.0-32.0); Mean Corpuscular Hgb Conc. 34.1 g/dL (32.0-36.0); Mean Corpuscular Volume 92.7 fL (80.0-100.0); Monocytes # (auto) 1.8 10 ^3/uL (0-1.3); Monocytes % (auto) 8.5 % (0.0-12.0); Neutrophils # (auto) 17.7 10 ^3/uL (1.6-8.6); Neutrophils % (auto) 82.9 % (37.0-80.0); Red Blood Cells 2.74 10^6/uL (4.5-5.90); Red Cell Distribution Width 15.3 % (11.8-14.3); White Blood Cell 21.4 10^3/uL (4.4-10.8)
[2022-07-29 04:31] LABS: INR 1.64 (0.9-1.15); Partial Thromboplastin Time 40.4 sec (24.6-33.4)
[2022-07-29 04:33] LABS: Albumin 1.5 g/dL (3.4-5.0); Calcium 6.9 mg/dL (8.5-10.1); Potassium 3.8 mmol/L (3.5-5.1)
[2022-07-29 04:39] LABS: BUN/Creatinine Ratio 56.1; Bilirubin, Total 8.4 mg/dL (0.2-1.0); Total Protein 3.2 g/dL (6.4-8.2)
[2022-07-29] MEDS: BUMETANIDE 2.5mg/10ml (0.25 mg/ml) INJ IV SCH ×3 (05:41→21:46)
[2022-07-29 08:06] LABS: RPR Non Reactive (Non Reactive)
[2022-07-29] MEDS: LACTULOSE 20Gm/30ML SOLN PO SCH (10:00)
[2022-07-29] MEDS: SERTRALINE HCL 50 MG TAB PO SCH (10:14)
[2022-07-29] MEDS: PANTOPRAZOLE 40 MG/10 ML VIAL INJ IV SCH ×2 (10:14→21:45)
[2022-07-29] MEDS: cefTRIAXone 1GM/50ML D5W 50 ML IV SCH (10:14)
[2022-07-29] MEDS: SODIUM CHLOR 0.9% PF (SALINE LOCK) 10ML VIAL/SYR IV SCH ×2 (10:22→21:45)
[2022-07-29] MEDS: MICAFUNGIN SODIUM 100 MG in SODIUM CHL 0.9% 100 ML IV SCH (10:59)
[2022-07-29] MEDS ORDERED: ALBUMIN 25% 100 ML IV ONE (11:45)
[2022-07-29] MEDS: VANCOMYCIN 1GM/250ML 250 ML IV SCH (14:09)
[2022-07-29] MEDS: HYDROcodone-ACET 5/325MG TAB PO PRN (18:55)
[2022-07-30] VITALS (23 sets, daily range): BP systolic 109–127; BP diastolic 56–69
[2022-07-30] MEDS: SODIUM CHL 0.9% IV SCH (03:00)
[2022-07-30] MEDS: AMINOCAPROIC ACID IV SCH (03:00)
[2022-07-30] MEDS: VANCOMYCIN 1GM/250ML 250 ML IV SCH ×2 (05:01→20:19)
[2022-07-30 05:48] LABS: Basophils # (auto) 0.1 10 ^3/uL (0-0.2); Basophils % (auto) 0.4 % (0.0-2.0); Hematocrit 24.9 % (41.0-53.0); Nucleated Red Blood Cells % 0.1 %
[2022-07-30 05:51] LABS: Eosinophils # (auto) 0.2 10 ^3/uL (0-0.8); Eosinophils % (auto) 0.7 % (0.0-7.0); Hemoglobin 8.6 g/dL (13.5-17.5); Lymphocytes % (auto) 4.9 % (10.0-50.0); Mean Corpuscular Hemoglobin 32.2 pg (28.0-32.0); Mean Corpuscular Hgb Conc. 34.6 g/dL (32.0-36.0); Monocytes # (auto) 1.6 10 ^3/uL (0-1.3); Monocytes % (auto) 7.5 % (0.0-12.0); Neutrophils # (auto) 18.2 10 ^3/uL (1.6-8.6); Neutrophils % (auto) 86.5 % (37.0-80.0); Red Blood Cells 2.68 10^6/uL (4.5-5.90); Red Cell Distribution Width 15.4 % (11.8-14.3)
[2022-07-30 06:00] LABS: INR 1.63 (0.9-1.15); Partial Thromboplastin Time 41.6 sec (24.6-33.4)
[2022-07-30 06:02] LABS: Calcium 7.3 mg/dL (8.5-10.1); Potassium 3.5 mmol/L (3.5-5.1)
[2022-07-30 06:07] LABS: BUN/Creatinine Ratio 53.1; Bilirubin, Total 9.8 mg/dL (0.2-1.0); Total Protein 3.9 g/dL (6.4-8.2)
[2022-07-30] MEDS: BUMETANIDE 2.5mg/10ml (0.25 mg/ml) INJ IV SCH ×3 (06:35→21:42)
[2022-07-30] MEDS: LACTULOSE 20Gm/30ML SOLN PO SCH (10:00)
[2022-07-30] MEDS: SERTRALINE HCL 50 MG TAB PO SCH (10:16)
[2022-07-30] MEDS: cefTRIAXone 1GM/50ML D5W 50 ML IV SCH (10:16)
[2022-07-30] MEDS: PANTOPRAZOLE 40 MG/10 ML VIAL INJ IV SCH ×2 (10:17→21:41)
[2022-07-30] MEDS: SODIUM CHLOR 0.9% PF (SALINE LOCK) 10ML VIAL/SYR IV SCH ×2 (10:29→21:49)
[2022-07-30] MEDS: MICAFUNGIN SODIUM 100 MG in SODIUM CHL 0.9% 100 ML IV SCH (11:30)
[2022-07-30] MEDS: HYDROcodone-ACET 5/325MG TAB PO PRN (13:08)
[2022-07-30] MEDS: MORPHINE SULFATE INJ 2 MG/ml SYRG IV PRN (20:16)
[2022-07-30] MEDS: ONDANSETRON HCL 4 MG/2 ML VIAL IV PRN (20:20)
[2022-07-31] VITALS (24 sets, daily range): BP systolic 108–127; BP diastolic 58–69
[2022-07-31] MEDS: BUMETANIDE 2.5mg/10ml (0.25 mg/ml) INJ IV SCH ×3 (06:09→23:18)
[2022-07-31] MEDS: SODIUM CHLOR 0.9% PF (SALINE LOCK) 10ML VIAL/SYR IV SCH ×2 (07:38→23:19)
[2022-07-31] MEDS: LACTULOSE 20Gm/30ML SOLN PO SCH (07:38)
[2022-07-31] MEDS: cefTRIAXone 1GM/50ML D5W 50 ML IV SCH (07:46)
[2022-07-31] MEDS: PANTOPRAZOLE 40 MG/10 ML VIAL INJ IV SCH ×2 (08:43→23:18)
[2022-07-31] MEDS: MICAFUNGIN SODIUM 100 MG in SODIUM CHL 0.9% 100 ML IV SCH (08:44)
[2022-07-31] MEDS: SERTRALINE HCL 50 MG TAB PO SCH (08:44)
[2022-07-31 09:29] LABS: Calcium 7.3 mg/dL (8.5-10.1); Potassium 3.5 mmol/L (3.5-5.1)
[2022-07-31 09:41] LABS: Basophils # (auto) 0 10 ^3/uL (0-0.2); Basophils % (auto) 0.1 % (0.0-2.0); Eosinophils # (auto) 0.1 10 ^3/uL (0-0.8); White Blood Cell 22.2 10^3/uL (4.4-10.8)
[2022-07-31 09:43] LABS: Eosinophils % (auto) 0.5 % (0.0-7.0); Hematocrit 25.1 % (41.0-53.0); Hemoglobin 8.7 g/dL (13.5-17.5); Mean Corpuscular Hemoglobin 32.6 pg (28.0-32.0); Mean Corpuscular Hgb Conc. 34.9 g/dL (32.0-36.0); Mean Corpuscular Volume 93.6 fL (80.0-100.0); Monocytes # (auto) 1.6 10 ^3/uL (0-1.3); Monocytes % (auto) 7.3 % (0.0-12.0); Neutrophils # (auto) 18.4 10 ^3/uL (1.6-8.6); Neutrophils % (auto) 83.1 % (37.0-80.0); Red Blood Cells 2.68 10^6/uL (4.5-5.90); Red Cell Distribution Width 16.7 % (11.8-14.3)
[2022-07-31] MEDS: VANCOMYCIN 1GM/250ML 250 ML IV SCH (15:21)
[2022-07-31] MEDS: MORPHINE SULFATE INJ 2 MG/ml SYRG IV PRN ×2 (16:38→23:41)
[2022-07-31] MEDS: HYDROcodone-ACET 5/325MG TAB PO PRN (20:27)
[2022-08-01] VITALS (24 sets, daily range): BP systolic 106–124; BP diastolic 56–72
[2022-08-01 05:05] LABS: Eosinophils # (auto) 0.1 10 ^3/uL (0-0.8); Hemoglobin 8.2 g/dL (13.5-17.5)
[2022-08-01 05:08] LABS: Basophils # (auto) 0 10 ^3/uL (0-0.2); Basophils % (auto) 0.2 % (0.0-2.0); Eosinophils % (auto) 0.5 % (0.0-7.0); Hematocrit 23.3 % (41.0-53.0); Lymphocytes # (auto) 3.5 10 ^3/uL (0.4-5.4); Mean Corpuscular Hgb Conc. 35.1 g/dL (32.0-36.0); Mean Corpuscular Volume 94.1 fL (80.0-100.0); Monocytes # (auto) 1.5 10 ^3/uL (0-1.3); Monocytes % (auto) 6.6 % (0.0-12.0); Neutrophils # (auto) 18.2 10 ^3/uL (1.6-8.6); Neutrophils % (auto) 77.7 % (37.0-80.0); Red Blood Cells 2.48 10^6/uL (4.5-5.90); Red Cell Distribution Width 17.5 % (11.8-14.3); White Blood Cell 23.4 10^3/uL (4.4-10.8)
[2022-08-01] MEDS: VANCOMYCIN 1GM/250ML 250 ML IV SCH (05:11)
[2022-08-01 05:19] LABS: BUN/Creatinine Ratio 49.4; Calcium 7.3 mg/dL (8.5-10.1); Potassium 3.3 mmol/L (3.5-5.1)
[2022-08-01] MEDS: BUMETANIDE 2.5mg/10ml (0.25 mg/ml) INJ IV SCH ×4 (06:36→20:55)
[2022-08-01] MEDS ORDERED: POTASSIUM CHL 20 Meq TABLET PO ONE ×2 (07:00→10:30)
[2022-08-01] MEDS: cefTRIAXone 1GM/50ML D5W 50 ML IV SCH (07:35)
[2022-08-01] MEDS: SODIUM CHLOR 0.9% PF (SALINE LOCK) 10ML VIAL/SYR IV SCH ×2 (07:42→20:56)
[2022-08-01] MEDS: PANTOPRAZOLE 40 MG/10 ML VIAL INJ IV SCH ×2 (08:54→20:55)
[2022-08-01] MEDS: SERTRALINE HCL 50 MG TAB PO SCH (08:55)
[2022-08-01] MEDS: MICAFUNGIN SODIUM 100 MG in SODIUM CHL 0.9% 100 ML IV SCH (08:55)
[2022-08-01] MEDS: LACTULOSE 20Gm/30ML SOLN PO SCH (08:55)
[2022-08-01] MEDS: MORPHINE SULFATE INJ 2 MG/ml SYRG IV PRN ×2 (12:10→21:05)
[2022-08-01] MEDS ORDERED: PHYTONADIONE(VitK) ORAL Susp 10mg/10ml(1mg/ml) PO ONE (12:30)
[2022-08-01] MEDS ORDERED: PHYTONADIONE (VIT K)10 MG/ML 1ML VIAL SUBCUT ONE (12:30)
[2022-08-01] MEDS: ONDANSETRON HCL 4 MG/2 ML VIAL IV PRN (21:04)
[2022-08-02] VITALS (24 sets, daily range): BP systolic 109–129; BP diastolic 51–70
[2022-08-02] MEDS: ONDANSETRON HCL 4 MG/2 ML VIAL IV PRN ×3 (03:23→17:00)
[2022-08-02] MEDS: MORPHINE SULFATE INJ 2 MG/ml SYRG IV PRN ×4 (03:30→21:53)
[2022-08-02 06:07] LABS: Basophils # (auto) 0.1 10 ^3/uL (0-0.2); Basophils % (auto) 0.3 % (0.0-2.0); Eosinophils # (auto) 0.1 10 ^3/uL (0-0.8); Eosinophils % (auto) 0.3 % (0.0-7.0); Hematocrit 23.3 % (41.0-53.0); Lymphocytes # (auto) 0.7 10 ^3/uL (0.4-5.4); Lymphocytes % (auto) 3.1 % (10.0-50.0); Mean Corpuscular Hemoglobin 32.7 pg (28.0-32.0); Mean Corpuscular Hgb Conc. 34.5 g/dL (32.0-36.0); Mean Corpuscular Volume 94.9 fL (80.0-100.0); Monocytes # (auto) 4.2 10 ^3/uL (0-1.3); Monocytes % (auto) 17.7 % (0.0-12.0); Neutrophils # (auto) 18.8 10 ^3/uL (1.6-8.6); Neutrophils % (auto) 78.6 % (37.0-80.0); Red Blood Cells 2.45 10^6/uL (4.5-5.90); Red Cell Distribution Width 18.2 % (11.8-14.3); White Blood Cell 23.9 10^3/uL (4.4-10.8)
[2022-08-02 06:17] LABS: INR 1.6 (0.9-1.15)
[2022-08-02 06:22] LABS: Potassium 3.8 mmol/L (3.5-5.1)
[2022-08-02 06:30] LABS: BUN/Creatinine Ratio 45.7; Bilirubin, Total 10.7 mg/dL (0.2-1.0); Calcium 7.1 mg/dL (8.5-10.1); Total Protein 4.1 g/dL (6.4-8.2)
[2022-08-02] MEDS: BUMETANIDE 2.5mg/10ml (0.25 mg/ml) INJ IV SCH ×3 (06:37→21:36)
[2022-08-02] MEDS: cefTRIAXone 1GM/50ML D5W 50 ML IV SCH (08:48)
[2022-08-02] MEDS: LACTULOSE 20Gm/30ML SOLN PO SCH (11:04)
[2022-08-02] MEDS: SERTRALINE HCL 50 MG TAB PO SCH (11:04)
[2022-08-02] MEDS: PANTOPRAZOLE 40 MG/10 ML VIAL INJ IV SCH ×2 (11:05→21:36)
[2022-08-02] MEDS: MICAFUNGIN SODIUM 100 MG in SODIUM CHL 0.9% 100 ML IV SCH (11:05)
[2022-08-02] MEDS: SODIUM CHLOR 0.9% PF (SALINE LOCK) 10ML VIAL/SYR IV SCH ×2 (11:06→21:36)
[2022-08-03] VITALS (22 sets, daily range): BP systolic 101–128; BP diastolic 49–72
[2022-08-03] MEDS: MORPHINE SULFATE INJ 2 MG/ml SYRG IV PRN ×2 (03:36→08:44)
[2022-08-03 05:56] LABS: Hemoglobin 7.9 g/dL (13.5-17.5)
[2022-08-03 06:00] LABS: Hematocrit 22.5 % (41.0-53.0); Mean Corpuscular Hgb Conc. 35.1 g/dL (32.0-36.0); Mean Corpuscular Volume 94.1 fL (80.0-100.0); Red Blood Cells 2.39 10^6/uL (4.5-5.90); Red Cell Distribution Width 19.1 % (11.8-14.3); White Blood Cell 24.1 10^3/uL (4.4-10.8)
[2022-08-03 06:01] LABS: INR 1.59 (0.9-1.15)
[2022-08-03 06:03] LABS: Basophils % (manual) 0 (0.0-2.0); Blast Cells 0; Metamyelocytes % 0; Myelocytes % 0; Promyelocytes % 0
[2022-08-03 06:10] LABS: Potassium 3.7 mmol/L (3.5-5.1)
[2022-08-03] MEDS: BUMETANIDE 2.5mg/10ml (0.25 mg/ml) INJ IV SCH ×3 (06:11→22:02)
[2022-08-03 06:19] LABS: Albumin 1.9 g/dL (3.4-5.0); BUN/Creatinine Ratio 37.5; Bilirubin, Total 9.5 mg/dL (0.2-1.0); Total Protein 4.2 g/dL (6.4-8.2)
[2022-08-03 06:50] LABS: Eosinophils % (manual) 1 (0-7); Lymphocytes % (manual) 4 (10.0-50.0); Reactive Lymphocytes 1
[2022-08-03 06:51] LABS: Band Neutrophils % (manual) 16; Monocytes % (manual) 12 (0-12)
[2022-08-03] MEDS: HYDROcodone-ACET 5/325MG TAB PO PRN (07:10)
[2022-08-03] MEDS: ONDANSETRON HCL 4 MG/2 ML VIAL IV PRN ×2 (08:45→15:31)
[2022-08-03] MEDS: cefTRIAXone 1GM/50ML D5W 50 ML IV SCH (08:59)
[2022-08-03] MEDS ORDERED: GABAPENTIN 100 MG CAP PO ONE (10:00)
[2022-08-03] MEDS: LACTULOSE 20Gm/30ML SOLN PO SCH (10:00)
[2022-08-03] MEDS: PANTOPRAZOLE 40 MG/10 ML VIAL INJ IV SCH ×2 (10:13→22:02)
[2022-08-03] MEDS: SERTRALINE HCL 50 MG TAB PO SCH (10:14)
[2022-08-03] MEDS: MICAFUNGIN SODIUM 100 MG in SODIUM CHL 0.9% 100 ML IV SCH (10:14)
[2022-08-03] MEDS: SODIUM CHLOR 0.9% PF (SALINE LOCK) 10ML VIAL/SYR IV SCH ×2 (10:20→22:02)
[2022-08-03] MEDS ORDERED: OXYCODONE W/ ACETAMINOPHEN 5/325MG TABLET PO PRN (12:00)
[2022-08-03] MEDS ORDERED: ALBUMIN 25% 100 ML IV ONE (12:00)
[2022-08-03] MEDS ORDERED: BUMETANIDE 2.5mg/10ml (0.25 mg/ml) INJ IV ONE (12:00)
[2022-08-03] MEDS ORDERED: METOCLOPRAMIDE HCL 5MG/ml INJ 2ml VIAL IV ONE (15:15)
[2022-08-03] MEDS: METOCLOPRAMIDE HCL 5MG/ml INJ 2ml VIAL IV SCH (22:02)
[2022-08-04] MEDS: ONDANSETRON HCL 4 MG/2 ML VIAL IV PRN ×2 (00:35→19:43)
[2022-08-04] MEDS: MORPHINE SULFATE INJ 2 MG/ml SYRG IV PRN ×2 (00:40→19:42)
[2022-08-04 05:00] VITALS: BP 126/65
[2022-08-04] MEDS: METOCLOPRAMIDE HCL 5MG/ml INJ 2ml VIAL IV SCH ×3 (06:01→22:07)
[2022-08-04] MEDS: BUMETANIDE 2.5mg/10ml (0.25 mg/ml) INJ IV SCH ×3 (06:01→22:00)
[2022-08-04 06:46] LABS: Hemoglobin 7.9 g/dL (13.5-17.5)
[2022-08-04 06:48] LABS: Mean Corpuscular Hemoglobin 33.5 pg (28.0-32.0); Mean Corpuscular Hgb Conc. 35.8 g/dL (32.0-36.0); Mean Corpuscular Volume 93.6 fL (80.0-100.0); Red Blood Cells 2.35 10^6/uL (4.5-5.90); Red Cell Distribution Width 19.1 % (11.8-14.3)
[2022-08-04 06:58] LABS: INR 2.14 (0.9-1.15); Partial Thromboplastin Time 53.8 sec (24.6-33.4)
[2022-08-04 07:05] LABS: BUN/Creatinine Ratio 38.1; Calcium 7.8 mg/dL (8.5-10.1); Potassium 3.7 mmol/L (3.5-5.1)
[2022-08-04 07:07] LABS: Bilirubin, Total 11.4 mg/dL (0.2-1.0); Total Protein 4.8 g/dL (6.4-8.2)
[2022-08-04 07:09] LABS: White Blood Cell 31.4 10^3/uL (4.4-10.8)
[2022-08-04 07:11] LABS: Basophils % (manual) 0 (0.0-2.0); Blast Cells 0; Eosinophils % (manual) 0 (0-7); Metamyelocytes % 0; Myelocytes % 0; Promyelocytes % 0; Reactive Lymphocytes 0
[2022-08-04 07:28] LABS: Band Neutrophils % (manual) 51; Lymphocytes % (manual) 2 (10.0-50.0); Monocytes % (manual) 12 (0-12)
[2022-08-04 09:00] VITALS: BP 118/66
[2022-08-04 10:44] LABS: Lactic Acid w/Reflex 2.5 mmol/L (0.4-2.0)
[2022-08-04] MEDS: PANTOPRAZOLE 40 MG/10 ML VIAL INJ IV SCH ×2 (10:51→22:07)
[2022-08-04] MEDS: SERTRALINE HCL 50 MG TAB PO SCH (10:51)
[2022-08-04] MEDS: LACTULOSE 20Gm/30ML SOLN PO SCH (10:51)
[2022-08-04] MEDS: SODIUM CHLOR 0.9% PF (SALINE LOCK) 10ML VIAL/SYR IV SCH ×2 (10:52→22:08)
[2022-08-04 13:00] VITALS: BP 119/60
[2022-08-04] MEDS: MICAFUNGIN SODIUM 100 MG in SODIUM CHL 0.9% 100 ML IV SCH (14:18)
[2022-08-04] MEDS ORDERED: ALBUMIN 25% 100 ML IV ONE (14:45)
[2022-08-04] MEDS ORDERED: SODIUM CHLORIDE 0.9% 500 ML IV ONE (14:45)
[2022-08-04 16:52] VITALS: BP 119/64
[2022-08-04 22:00] VITALS: BP 106/51
[2022-08-05] VITALS (11 sets, daily range): BP systolic 102–111; BP diastolic 52–63
[2022-08-05] MEDS: BUMETANIDE 2.5mg/10ml (0.25 mg/ml) INJ IV SCH ×3 (05:43→23:14)
[2022-08-05 06:13] LABS: Hematocrit 17.5 % (41.0-53.0); Mean Corpuscular Hemoglobin 33.7 pg (28.0-32.0); Mean Corpuscular Hgb Conc. 35.1 g/dL (32.0-36.0); Mean Corpuscular Volume 95.8 fL (80.0-100.0); Red Blood Cells 1.82 10^6/uL (4.5-5.90); Red Cell Distribution Width 20.5 % (11.8-14.3)
[2022-08-05 06:15] LABS: Hemoglobin 6.1 g/dL (13.5-17.5)
[2022-08-05 06:17] LABS: Basophils % (manual) 0 (0.0-2.0); Blast Cells 0; Eosinophils % (manual) 0 (0-7); Metamyelocytes % 0; Myelocytes % 0; Promyelocytes % 0; Reactive Lymphocytes 0
[2022-08-05] MEDS: METOCLOPRAMIDE HCL 5MG/ml INJ 2ml VIAL IV SCH ×3 (06:30→21:43)
[2022-08-05 06:36] LABS: Calcium 7.2 mg/dL (8.5-10.1)
[2022-08-05 06:38] LABS: BUN/Creatinine Ratio 36.9
[2022-08-05 06:40] LABS: Lactic Acid w/Reflex 2.3 mmol/L (0.4-2.0)
[2022-08-05 06:51] LABS: Bilirubin, Total 9.8 mg/dL (0.2-1.0); Total Protein 4.1 g/dL (6.4-8.2)
[2022-08-05 09:19] LABS: Band Neutrophils % (manual) 26; Lymphocytes % (manual) 4 (10.0-50.0); Monocytes % (manual) 11 (0-12)
[2022-08-05] MEDS: MICAFUNGIN SODIUM 100 MG in SODIUM CHL 0.9% 100 ML IV SCH (10:57)
[2022-08-05] MEDS: LACTULOSE 20Gm/30ML SOLN PO SCH (10:57)
[2022-08-05] MEDS: PANTOPRAZOLE 40 MG/10 ML VIAL INJ IV SCH ×2 (10:57→21:42)
[2022-08-05] MEDS: SODIUM CHLOR 0.9% PF (SALINE LOCK) 10ML VIAL/SYR IV SCH ×2 (10:58→22:00)
[2022-08-05] MEDS: SERTRALINE HCL 50 MG TAB PO SCH (10:58)
[2022-08-05 15:43] LABS: Basophils # (auto) 0.1 10 ^3/uL (0-0.2); Basophils % (auto) 0.2 % (0.0-2.0); Eosinophils # (auto) 0.1 10 ^3/uL (0-0.8); Eosinophils % (auto) 0.4 % (0.0-7.0); Hematocrit 27.6 % (41.0-53.0); Hemoglobin 9.3 g/dL (13.5-17.5); Lymphocytes # (auto) 1.1 10 ^3/uL (0.4-5.4); Lymphocytes % (auto) 4.8 % (10.0-50.0); Mean Corpuscular Hemoglobin 30.3 pg (28.0-32.0); Mean Corpuscular Hgb Conc. 33.6 g/dL (32.0-36.0); Mean Corpuscular Volume 90.4 fL (80.0-100.0); Monocytes # (auto) 2.7 10 ^3/uL (0-1.3); Monocytes % (auto) 11.4 % (0.0-12.0); Neutrophils # (auto) 19.8 10 ^3/uL (1.6-8.6); Neutrophils % (auto) 83.2 % (37.0-80.0); Nucleated Red Blood Cells % 0.2 %; Red Blood Cells 3.06 10^6/uL (4.5-5.90); Red Cell Distribution Width 17.9 % (11.8-14.3); White Blood Cell 23.8 10^3/uL (4.4-10.8)
[2022-08-05] MEDS ORDERED: SODIUM CHL 0.9% IV ONE (17:00)
[2022-08-05] MEDS ORDERED: AMINOCAPROIC ACID IV ONE (17:00)
[2022-08-05] MEDS ORDERED: AMINOCAPROIC ACID IV SCH (18:00)
[2022-08-05] MEDS: ONDANSETRON HCL 4 MG/2 ML VIAL IV PRN (18:21)
[2022-08-05] MEDS: MORPHINE SULFATE INJ 2 MG/ml SYRG IV PRN (21:45)
[2022-08-06] VITALS (7 sets, daily range): BP systolic 97–111; BP diastolic 52–56
[2022-08-06] MEDS: SODIUM CHL 0.9% IV SCH ×4 (00:11→18:37)
[2022-08-06] MEDS: AMINOCAPROIC ACID IV SCH ×4 (00:11→18:37)
[2022-08-06] MEDS: METOCLOPRAMIDE HCL 5MG/ml INJ 2ml VIAL IV SCH ×3 (05:31→21:34)
[2022-08-06] MEDS: BUMETANIDE 2.5mg/10ml (0.25 mg/ml) INJ IV SCH (05:32)
[2022-08-06 05:37] LABS: Hematocrit 21.3 % (41.0-53.0); Hemoglobin 7.4 g/dL (13.5-17.5); Mean Corpuscular Hemoglobin 31.6 pg (28.0-32.0); Mean Corpuscular Hgb Conc. 34.8 g/dL (32.0-36.0); Mean Corpuscular Volume 90.9 fL (80.0-100.0); Red Blood Cells 2.34 10^6/uL (4.5-5.90)
[2022-08-06 05:40] LABS: Red Cell Distribution Width 20.3 % (11.8-14.3)
[2022-08-06 05:42] LABS: White Blood Cell 30.3 10^3/uL (4.4-10.8)
[2022-08-06 05:51] LABS: Basophils % (manual) 0 (0.0-2.0); Blast Cells 0; Eosinophils % (manual) 0 (0-7); Metamyelocytes % 0; Myelocytes % 0; Promyelocytes % 0; Reactive Lymphocytes 0
[2022-08-06 05:54] LABS: Potassium 3.8 mmol/L (3.5-5.1)
[2022-08-06 06:00] LABS: BUN/Creatinine Ratio 34.3; Bilirubin, Total 10.6 mg/dL (0.2-1.0)
[2022-08-06] MEDS: MORPHINE SULFATE INJ 2 MG/ml SYRG IV PRN ×3 (06:28→18:38)
[2022-08-06 07:29] LABS: Band Neutrophils % (manual) 7; Lymphocytes % (manual) 5 (10.0-50.0); Monocytes % (manual) 10 (0-12)
[2022-08-06] MEDS: SERTRALINE HCL 50 MG TAB PO SCH (10:10)
[2022-08-06] MEDS: MICAFUNGIN SODIUM 100 MG in SODIUM CHL 0.9% 100 ML IV SCH (10:10)
[2022-08-06] MEDS: PANTOPRAZOLE 40 MG/10 ML VIAL INJ IV SCH ×2 (10:10→21:34)
[2022-08-06] MEDS: LACTULOSE 20Gm/30ML SOLN PO SCH (10:10)
[2022-08-06] MEDS: SODIUM CHLOR 0.9% PF (SALINE LOCK) 10ML VIAL/SYR IV SCH ×2 (10:19→21:45)
[2022-08-07] VITALS (8 sets, daily range): BP systolic 96–110; BP diastolic 53–63
[2022-08-07] MEDS: SODIUM CHL 0.9% IV SCH ×3 (00:21→11:00)
[2022-08-07] MEDS: AMINOCAPROIC ACID IV SCH ×3 (00:21→11:00)
[2022-08-07] MEDS: MORPHINE SULFATE INJ 2 MG/ml SYRG IV PRN ×4 (02:37→21:06)
[2022-08-07 06:06] LABS: Hematocrit 19.3 % (41.0-53.0)
[2022-08-07 06:19] LABS: Basophils # (auto) 0 10 ^3/uL (0-0.2); Basophils % (auto) 0.2 % (0.0-2.0); Eosinophils # (auto) 0.1 10 ^3/uL (0-0.8); Eosinophils % (auto) 0.2 % (0.0-7.0); Lymphocytes # (auto) 1.4 10 ^3/uL (0.4-5.4); Lymphocytes % (auto) 6.4 % (10.0-50.0); Mean Corpuscular Hemoglobin 32.3 pg (28.0-32.0); Mean Corpuscular Hgb Conc. 35.9 g/dL (32.0-36.0); Mean Corpuscular Volume 90.1 fL (80.0-100.0); Monocytes % (auto) 9.1 % (0.0-12.0); Neutrophils # (auto) 18.3 10 ^3/uL (1.6-8.6); Neutrophils % (auto) 84.1 % (37.0-80.0); Red Blood Cells 2.14 10^6/uL (4.5-5.90); White Blood Cell 21.8 10^3/uL (4.4-10.8)
[2022-08-07 06:52] LABS: Potassium 4.1 mmol/L (3.5-5.1)
[2022-08-07 07:00] LABS: Albumin 1.9 g/dL (3.4-5.0); BUN/Creatinine Ratio 31.9; Bilirubin, Total 10.3 mg/dL (0.2-1.0); Total Protein 4.2 g/dL (6.4-8.2)
[2022-08-07 07:11] LABS: Red Cell Distribution Width 20.4 % (11.8-14.3)
[2022-08-07 07:13] LABS: Hemoglobin 6.9 g/dL (13.5-17.5)
[2022-08-07] MEDS: LACTULOSE 20Gm/30ML SOLN PO SCH (09:50)
[2022-08-07] MEDS: METOCLOPRAMIDE HCL 5MG/ml INJ 2ml VIAL IV SCH ×2 (09:50→21:05)
[2022-08-07] MEDS: PANTOPRAZOLE 40 MG/10 ML VIAL INJ IV SCH ×2 (09:50→21:05)
[2022-08-07] MEDS: MICAFUNGIN SODIUM 100 MG in SODIUM CHL 0.9% 100 ML IV SCH (09:50)
[2022-08-07] MEDS: SODIUM CHLOR 0.9% PF (SALINE LOCK) 10ML VIAL/SYR IV SCH ×2 (09:51→21:05)
[2022-08-07] MEDS: SERTRALINE HCL 50 MG TAB PO SCH (09:51)
[2022-08-07] MEDS: ONDANSETRON HCL 4 MG/2 ML VIAL IV PRN ×2 (11:31→18:59)
[2022-08-07] MEDS ORDERED: PHYTONADIONE(VitK) ORAL Susp 10mg/10ml(1mg/ml) PO ONE (12:45)
[2022-08-07] MEDS ORDERED: PHYTONADIONE (VIT K)10 MG/ML 1ML VIAL SUBCUT ONE (12:45)
[2022-08-08] MEDS: MORPHINE SULFATE INJ 2 MG/ml SYRG IV PRN ×4 (02:12→18:10)
[2022-08-08 06:00] VITALS: BP 106/54
[2022-08-08 06:16] LABS: Basophils # (auto) 0 10 ^3/uL (0-0.2); Hematocrit 23.8 % (41.0-53.0); Mean Corpuscular Hemoglobin 31.4 pg (28.0-32.0); Mean Corpuscular Hgb Conc. 34.6 g/dL (32.0-36.0); Monocytes # (auto) 2.1 10 ^3/uL (0-1.3); Monocytes % (auto) 9.7 % (0.0-12.0); Nucleated Red Blood Cells % 0.1 %; Red Blood Cells 2.63 10^6/uL (4.5-5.90); White Blood Cell 21.3 10^3/uL (4.4-10.8)
[2022-08-08 06:20] LABS: Eosinophils # (auto) 0.1 10 ^3/uL (0-0.8); Eosinophils % (auto) 0.5 % (0.0-7.0); Hemoglobin 8.3 g/dL (13.5-17.5); Lymphocytes # (auto) 1.1 10 ^3/uL (0.4-5.4); Lymphocytes % (auto) 5.4 % (10.0-50.0); Mean Corpuscular Volume 90.8 fL (80.0-100.0); Neutrophils % (auto) 84.4 % (37.0-80.0)
[2022-08-08 06:32] LABS: INR 1.61 (0.9-1.15)
[2022-08-08 06:38] LABS: Red Cell Distribution Width 20.3 % (11.8-14.3)
[2022-08-08 06:47] LABS: Potassium 4.2 mmol/L (3.5-5.1)
[2022-08-08 06:55] LABS: Albumin 1.8 g/dL (3.4-5.0); BUN/Creatinine Ratio 32.7; Bilirubin, Total 12.2 mg/dL (0.2-1.0); Calcium 7.1 mg/dL (8.5-10.1); Total Protein 4.3 g/dL (6.4-8.2)
[2022-08-08 09:00] VITALS: BP 113/54
[2022-08-08] MEDS: PANTOPRAZOLE 40 MG/10 ML VIAL INJ IV SCH ×2 (12:12→21:19)
[2022-08-08] MEDS: SODIUM CHLOR 0.9% PF (SALINE LOCK) 10ML VIAL/SYR IV SCH ×2 (12:12→21:24)
[2022-08-08] MEDS: METOCLOPRAMIDE HCL 5MG/ml INJ 2ml VIAL IV SCH ×2 (12:12→21:19)
[2022-08-08] MEDS: LACTULOSE 20Gm/30ML SOLN PO SCH (12:13)
[2022-08-08] MEDS: SERTRALINE HCL 50 MG TAB PO SCH (12:13)
[2022-08-08] MEDS: ONDANSETRON HCL 4 MG/2 ML VIAL IV PRN ×2 (12:59→18:09)
[2022-08-08 13:00] VITALS: BP 107/56
[2022-08-08 17:00] VITALS: BP 103/48
[2022-08-08 19:10] VITALS: BP 103/46
[2022-08-08 22:33] VITALS: BP 93/46
[2022-08-09] MEDS: ONDANSETRON HCL 4 MG/2 ML VIAL IV PRN ×3 (02:17→19:35)
[2022-08-09 05:33] VITALS: BP 99/58
[2022-08-09 06:22] LABS: Basophils # (auto) 0 10 ^3/uL (0-0.2); Hematocrit 22.7 % (41.0-53.0); Hemoglobin 7.9 g/dL (13.5-17.5); Lymphocytes # (auto) 0.9 10 ^3/uL (0.4-5.4); Mean Corpuscular Hemoglobin 31.5 pg (28.0-32.0); Nucleated Red Blood Cells % 0.1 %
[2022-08-09 06:24] LABS: Basophils % (auto) 0.2 % (0.0-2.0); Eosinophils # (auto) 0.1 10 ^3/uL (0-0.8); Eosinophils % (auto) 0.5 % (0.0-7.0); Lymphocytes % (auto) 4.3 % (10.0-50.0); Mean Corpuscular Hgb Conc. 34.9 g/dL (32.0-36.0); Mean Corpuscular Volume 90.3 fL (80.0-100.0); Monocytes # (auto) 1.7 10 ^3/uL (0-1.3); Monocytes % (auto) 8.5 % (0.0-12.0); Neutrophils # (auto) 17.4 10 ^3/uL (1.6-8.6); Neutrophils % (auto) 86.5 % (37.0-80.0); Red Blood Cells 2.51 10^6/uL (4.5-5.90); Red Cell Distribution Width 19.6 % (11.8-14.3); White Blood Cell 20.2 10^3/uL (4.4-10.8)
[2022-08-09 06:27] LABS: Potassium 4.1 mmol/L (3.5-5.1)
[2022-08-09 06:37] LABS: Albumin 1.6 g/dL (3.4-5.0); Bilirubin, Total 9.8 mg/dL (0.2-1.0); Total Protein 4.2 g/dL (6.4-8.2)
[2022-08-09] MEDS: METOCLOPRAMIDE HCL 5MG/ml INJ 2ml VIAL IV SCH ×2 (09:39→21:08)
[2022-08-09] MEDS: PANTOPRAZOLE 40 MG/10 ML VIAL INJ IV SCH ×2 (09:40→21:08)
[2022-08-09] MEDS: LACTULOSE 20Gm/30ML SOLN PO SCH (09:40)
[2022-08-09] MEDS: SODIUM CHLOR 0.9% PF (SALINE LOCK) 10ML VIAL/SYR IV SCH ×2 (09:40→21:39)
[2022-08-09] MEDS: SERTRALINE HCL 50 MG TAB PO SCH (09:41)
[2022-08-09 13:00] VITALS: BP 106/52
[2022-08-09 17:00] VITALS: BP 120/62
[2022-08-09] MEDS ORDERED: PROMETHAZINE HCL 25 MG/ML 1ML IV ONE (20:30)
[2022-08-09 22:00] VITALS: BP 113/54
[2022-08-10] MEDS: ONDANSETRON HCL 4 MG/2 ML VIAL IV PRN ×2 (03:47→13:15)
[2022-08-10 05:00] VITALS: BP 102/51
[2022-08-10 06:54] LABS: INR 1.67 (0.9-1.15); Partial Thromboplastin Time 48.9 sec (24.6-33.4)
[2022-08-10 07:00] LABS: Albumin 1.6 g/dL (3.4-5.0); Calcium 7.1 mg/dL (8.5-10.1); Potassium 4.3 mmol/L (3.5-5.1)
[2022-08-10 07:02] LABS: BUN/Creatinine Ratio 33.3
[2022-08-10 07:05] LABS: Bilirubin, Total 10.4 mg/dL (0.2-1.0); Total Protein 4.4 g/dL (6.4-8.2)
[2022-08-10 07:09] LABS: Eosinophils # (auto) 0 10 ^3/uL (0-0.8); Eosinophils % (auto) 0.1 % (0.0-7.0); Hemoglobin 8.1 g/dL (13.5-17.5); Monocytes # (auto) 1.7 10 ^3/uL (0-1.3); Nucleated Red Blood Cells % 0.1 %; White Blood Cell 20.9 10^3/uL (4.4-10.8)
[2022-08-10 07:12] LABS: Basophils # (auto) 0 10 ^3/uL (0-0.2); Basophils % (auto) 0.1 % (0.0-2.0); Hematocrit 23.2 % (41.0-53.0); Lymphocytes # (auto) 1.2 10 ^3/uL (0.4-5.4); Lymphocytes % (auto) 5.6 % (10.0-50.0); Mean Corpuscular Hemoglobin 31.8 pg (28.0-32.0); Mean Corpuscular Hgb Conc. 34.9 g/dL (32.0-36.0); Mean Corpuscular Volume 91.3 fL (80.0-100.0); Monocytes % (auto) 8.1 % (0.0-12.0); Neutrophils % (auto) 86.1 % (37.0-80.0); Red Blood Cells 2.54 10^6/uL (4.5-5.90)
[2022-08-10 07:34] LABS: Red Cell Distribution Width 20.2 % (11.8-14.3)
[2022-08-10 08:00] VITALS: BP 111/55
[2022-08-10 08:45] VITALS: BP 110/50
[2022-08-10] MEDS: SERTRALINE HCL 50 MG TAB PO SCH (10:00)
[2022-08-10] MEDS: LACTULOSE 20Gm/30ML SOLN PO SCH (10:00)
[2022-08-10] MEDS: PANTOPRAZOLE 40 MG/10 ML VIAL INJ IV SCH ×2 (10:11→21:52)
[2022-08-10] MEDS: SODIUM CHLOR 0.9% PF (SALINE LOCK) 10ML VIAL/SYR IV SCH ×2 (10:12→21:52)
[2022-08-10] MEDS: METOCLOPRAMIDE HCL 5MG/ml INJ 2ml VIAL IV SCH ×2 (10:12→21:52)
[2022-08-10 12:35] VITALS: BP 111/50
[2022-08-10 16:30] VITALS: BP 110/47
[2022-08-10] MEDS: MORPHINE SULFATE INJ 2 MG/ml SYRG IV PRN (21:54)
[2022-08-10 22:00] VITALS: BP 109/52
[2022-08-11] VITALS (9 sets, daily range): BP systolic 93–123; BP diastolic 37–63
[2022-08-11] MEDS: ONDANSETRON HCL 4 MG/2 ML VIAL IV PRN (03:05)
[2022-08-11] MEDS: HYDROcodone-ACET 5/325MG TAB PO PRN (03:31)
[2022-08-11 06:15] LABS: Basophils # (auto) 0 10 ^3/uL (0-0.2); Basophils % (auto) 0.2 % (0.0-2.0); Eosinophils # (auto) 0 10 ^3/uL (0-0.8); Eosinophils % (auto) 0.1 % (0.0-7.0); Hemoglobin 8.1 g/dL (13.5-17.5); Mean Corpuscular Hemoglobin 32.1 pg (28.0-32.0); Monocytes # (auto) 1.8 10 ^3/uL (0-1.3); Red Blood Cells 2.52 10^6/uL (4.5-5.90)
[2022-08-11 06:17] LABS: Hematocrit 23.1 % (41.0-53.0); Lymphocytes % (auto) 4.3 % (10.0-50.0); Mean Corpuscular Hgb Conc. 34.9 g/dL (32.0-36.0); Monocytes % (auto) 8.1 % (0.0-12.0); Neutrophils # (auto) 19.8 10 ^3/uL (1.6-8.6); Neutrophils % (auto) 87.3 % (37.0-80.0); White Blood Cell 22.6 10^3/uL (4.4-10.8)
[2022-08-11 06:29] LABS: Red Cell Distribution Width 21.4 % (11.8-14.3)
[2022-08-11 06:31] LABS: Albumin 1.7 g/dL (3.4-5.0); BUN/Creatinine Ratio 33.1; Calcium 6.7 mg/dL (8.5-10.1); Potassium 4.6 mmol/L (3.5-5.1)
[2022-08-11 06:34] LABS: Bilirubin, Total 10.4 mg/dL (0.2-1.0); Total Protein 4.3 g/dL (6.4-8.2)
[2022-08-11] MEDS: PROMETHAZINE HCL 25 MG/ML 1ML IV PRN ×2 (08:54→18:38)
[2022-08-11] MEDS: LACTULOSE 20Gm/30ML SOLN PO SCH (10:00)
[2022-08-11] MEDS: SERTRALINE HCL 50 MG TAB PO SCH (10:00)
[2022-08-11] MEDS: PANTOPRAZOLE 40 MG/10 ML VIAL INJ IV SCH ×2 (10:21→21:31)
[2022-08-11] MEDS: METOCLOPRAMIDE HCL 5MG/ml INJ 2ml VIAL IV SCH ×2 (10:21→21:31)
[2022-08-11] MEDS: SODIUM CHLOR 0.9% PF (SALINE LOCK) 10ML VIAL/SYR IV SCH ×2 (10:22→21:31)
[2022-08-11 12:59] LABS: Urine Bacteria NONE SEEN /hpf (None Seen); Urine Blood TRACE /uL (Negative); Urine Hyaline Cast FEW /lpf (0 - 2); Urine Specific Gravity 1.013 (1.001-1.035); Urine WBC 2 /hpf (0 - 3)
[2022-08-11 13:17] LABS: Creatinine, Urine 78 mg/dL (30.0-125.0); Sodium Urine < 5 mmol/L (40-220)
[2022-08-11] MEDS ORDERED: MIDAZOLAM HCL 10 MG/5 ML ORAL SYRUP UNIT DOSE PO SCH (14:00)
[2022-08-11] MEDS: OCTREOTIDE ACETATE 100 MCG/ML VL SUBCUT SCH ×2 (17:39→21:32)
[2022-08-11] MEDS: MIDODRINE HCL 10 MG TAB PO SCH (18:36)
[2022-08-11 21:43] LABS: Protein, Urine 59.3 mg/dL (0.0-11.9)
[2022-08-12 00:25] VITALS: BP 92/36
[2022-08-12 01:34] VITALS: BP 98/41
[2022-08-12] MEDS: MIDODRINE HCL 10 MG TAB PO SCH ×2 (04:35→11:57)
[2022-08-12] MEDS: OCTREOTIDE ACETATE 100 MCG/ML VL SUBCUT SCH (04:36)
[2022-08-12 05:00] VITALS: BP 104/45
[2022-08-12 06:26] LABS: Albumin 1.5 g/dL (3.4-5.0); Calcium 6.4 mg/dL (8.5-10.1); Potassium 4.9 mmol/L (3.5-5.1)
[2022-08-12 06:33] LABS: BUN/Creatinine Ratio 30.2; Bilirubin, Total 9.4 mg/dL (0.2-1.0); Total Protein 4.5 g/dL (6.4-8.2)
[2022-08-12 06:38] LABS: INR 1.6 (0.9-1.15); Partial Thromboplastin Time 54.8 sec (24.6-33.4)
[2022-08-12 06:51] LABS: Basophils # (auto) 0 10 ^3/uL (0-0.2); Basophils % (auto) 0.1 % (0.0-2.0); Eosinophils # (auto) 0.1 10 ^3/uL (0-0.8); Hemoglobin 8.2 g/dL (13.5-17.5); Mean Corpuscular Hemoglobin 32.4 pg (28.0-32.0); Red Blood Cells 2.53 10^6/uL (4.5-5.90)
[2022-08-12 06:52] LABS: Eosinophils % (auto) 0.5 % (0.0-7.0); Hematocrit 23.3 % (41.0-53.0); Lymphocytes # (auto) 1.3 10 ^3/uL (0.4-5.4); Mean Corpuscular Hgb Conc. 35.3 g/dL (32.0-36.0); Mean Corpuscular Volume 91.9 fL (80.0-100.0); Monocytes # (auto) 1.6 10 ^3/uL (0-1.3); Monocytes % (auto) 7.6 % (0.0-12.0); Neutrophils # (auto) 18.1 10 ^3/uL (1.6-8.6); Neutrophils % (auto) 85.8 % (37.0-80.0); Nucleated Red Blood Cells % 0.1 %; White Blood Cell 21.1 10^3/uL (4.4-10.8)
[2022-08-12 07:32] LABS: Red Cell Distribution Width 22.5 % (11.8-14.3)
[2022-08-12] MEDS: ONDANSETRON HCL 4 MG/2 ML VIAL IV PRN (08:31)
[2022-08-12 09:00] VITALS: BP 94/44
[2022-08-12] MEDS: PANTOPRAZOLE 40 MG/10 ML VIAL INJ IV SCH (09:31)
[2022-08-12] MEDS: SERTRALINE HCL 50 MG TAB PO SCH (09:32)
[2022-08-12] MEDS: SODIUM CHLOR 0.9% PF (SALINE LOCK) 10ML VIAL/SYR IV SCH (09:33)
[2022-08-12] MEDS: LACTULOSE 20Gm/30ML SOLN PO SCH (09:48)
[2022-08-12] MEDS: METOCLOPRAMIDE HCL 5MG/ml INJ 2ml VIAL IV SCH (09:48)
[2022-08-12] MEDS ORDERED: DOPamine 1600MCG/ML D5W 250 ML IV SCH (12:45)
[2022-08-12 13:00] VITALS: BP 90/43
== END 2022-08-12 16:42 | disposition left against medical advice (07) | DRG 720 ==
LOC: EDBD 12:16 → ER 12:16 → TELE 17:50 → ICU CENTRL 07-05 23:48 → DOU IN ICU 07-18 17:25 → TELE-WESTW 08-03 22:23
PROVIDERS: ADMIT Internal Medicine; ATTEND Internal Medicine
PROC: 0BH17EZ Insertion of Endotracheal Airway into Trachea, Via Natural or Artificial Opening (ICD-10-PCS; principal; 2022-07-04)
PROC: 30233N1 Transfusion of Nonautologous Red Blood Cells into Peripheral Vein, Percutaneous Approach (ICD-10-PCS; 2022-07-04)
PROC: 5A09357 Assistance with Respiratory Ventilation, Less than 24 Consecutive Hours, Continuous Positive Airway Pressure (ICD-10-PCS; 2022-07-04)
PROC: 30233K1 Transfusion of Nonautologous Frozen Plasma into Peripheral Vein, Percutaneous Approach (ICD-10-PCS; 2022-07-05)
PROC: 02HV33Z Insertion of Infusion Device into Superior Vena Cava, Percutaneous Approach (ICD-10-PCS; 2022-07-11)
PROC: B548ZZA Ultrasonography of Superior Vena Cava, Guidance (ICD-10-PCS; 2022-07-11)
PROC: 5A09357 Assistance with Respiratory Ventilation, Less than 24 Consecutive Hours, Continuous Positive Airway Pressure (ICD-10-PCS; 2022-07-16)
PROC: 5A09357 Assistance with Respiratory Ventilation, Less than 24 Consecutive Hours, Continuous Positive Airway Pressure (ICD-10-PCS; 2022-07-17)
PROC: 5A09357 Assistance with Respiratory Ventilation, Less than 24 Consecutive Hours, Continuous Positive Airway Pressure (ICD-10-PCS; 2022-07-18)
PROC: 0DB98ZX Excision of Duodenum, Via Natural or Artificial Opening Endoscopic, Diagnostic (ICD-10-PCS; 2022-07-20)
PROC: 0DB68ZX Excision of Stomach, Via Natural or Artificial Opening Endoscopic, Diagnostic (ICD-10-PCS; 2022-07-20)
PROC: 079T3ZX Drainage of Bone Marrow, Percutaneous Approach, Diagnostic (ICD-10-PCS; 2022-07-20)
PROC: 30233R1 Transfusion of Nonautologous Platelets into Peripheral Vein, Percutaneous Approach (ICD-10-PCS; 2022-07-25)
PROC: 0M9 Bursae and Ligaments, Drainage (ICD-10-PCS; 2022-07-27)
PROC: 0W9G3ZZ Drainage of Peritoneal Cavity, Percutaneous Approach (ICD-10-PCS; 2022-08-02)
PROC: 0W9G3ZZ Drainage of Peritoneal Cavity, Percutaneous Approach (ICD-10-PCS; 2022-08-08)
DX: A41.9 Sepsis, unspecified organism (principal); K76.7 Hepatorenal syndrome; J80 Acute respiratory distress syndrome; J69.0 Pneumonitis due to inhalation of food and vomit; N17.0 Acute kidney failure with tubular necrosis; R65.21 Severe sepsis with septic shock; R57.1 Hypovolemic shock; J10.00 Influenza due to other identified influenza virus with unspecified type of pneumonia; B49 Unspecified mycosis; K25.4 Chronic or unspecified gastric ulcer with hemorrhage; K70.40 Alcoholic hepatic failure without coma; E88.09 Other disorders of plasma-protein metabolism, not elsewhere classified; K76.82 Hepatic encephalopathy; K70.11 Alcoholic hepatitis with ascites; K70.31 Alcoholic cirrhosis of liver with ascites; D69.6 Thrombocytopenia, unspecified; F33.2 Major depressive disorder, recurrent severe without psychotic features; K44.9 Diaphragmatic hernia without obstruction or gangrene; K76.6 Portal hypertension; E87.1 Hypo-osmolality and hyponatremia; K56.7 Ileus, unspecified; K31.9 Disease of stomach and duodenum, unspecified; Y90.6 Blood alcohol level of 120-199 mg/100 ml; E87.5 Hyperkalemia; D53.9 Nutritional anemia, unspecified; F10.20 Alcohol dependence, uncomplicated; K29.71 Gastritis, unspecified, with bleeding; S70.321A Blister (nonthermal), right thigh, initial encounter; X58.XXXA Exposure to other specified factors, initial encounter; D68.9 Coagulation defect, unspecified; Z53.29 Procedure and treatment not carried out because of patient's decision for other reasons; N39.0 Urinary tract infection, site not specified; Z20.822 Contact with and (suspected) exposure to COVID-19; Z53.20 Procedure and treatment not carried out because of patient's decision for unspecified reasons; Z81.8 Family history of other mental and behavioral disorders; Z82.49 Family history of ischemic heart disease and other diseases of the circulatory system; Z83.3 Family history of diabetes mellitus; Z88.8 Allergy status to other drugs, medicaments and biological substances; Y93.89 Activity, other specified; Y92.89 Other specified places as the place of occurrence of the external cause; Y99.8 Other external cause status
CPT/HCPCS: 36415; 36430; 36569; 36600; 43239; 70450; 70551; 71045; 71250; 73700; 74018; 74176; 76705; 76775; 76942; 80048; 80053; 80069; 80202; 80307; 81001; 82105; 82140; 82248; 82270; 82306; 82570; 82805; 82962; 83010; 83036; 83540; 83605; 83615; 83690; 83735; 83880; 83935; 83970; 83986; 84100; 84156; 84300; 84443; 84478; 84484; 85007; 85014; 85018; 85025; 85027; 85045; 85384; 85610; 85652; 85730; 86141; 86592; 86703; 86704; 86706; 86708; 86710; 86803; 86850; 86880; 86900; 86901; 86920; 87040; 87045; 87070; 87077; 87081; 87086; 87186; 87205; 87340; 87426; 87427; 87493; 87804; 89051; 92507; 92610; 93005; 93306; 93926; 93970; 94003; 94640; 94660; 95819; 96365; 96367; 96368; 96375; 97110; 97116; 97163; 97530; C9113; G0378; J0330; J0696; J1815; J2185; J2248; J2250; J2405; J2543; J2704; J3430; J3490; J7060; J7131; P9047